=== PATIENT | female | born 1935 | race Caucasian/White ===

== ENCOUNTER → 2017-01-27 | Outpatient (CLI) | payer MEDICARE, BC ==
--- NOTE | 2017-01-29 08:48 | MM ---
Reason for exam: screening (asymptomatic). Last mammogram was performed 1 year and 1 month ago. History: Patient is postmenopausal. Family history of breast cancer in maternal aunt. Physical Findings: A clinical breast exam by your physician is recommended on an annual basis and results should be correlated with mammographic findings. MG 3D Screening Mammo W/Cad Bilateral CC and MLO view(s) were taken. Prior study comparison: December 25, 2015, bilateral MG 3d screening mammo w/cad. December 20, 2014, bilateral MG screening mammo w CAD. December 02, 2013, bilateral MG screening mammo w CAD. There are scattered fibroglandular densities. There is chronic nodularity in the left breast. Subareolar asymmetric density in the right breast is more defined from priors but partially disperses on tomosynthesis. The MLO view is unchanged. A precautionary 6 month follow up is recommended. ASSESSMENT: Probably benign, BI-RAD 3 RECOMMENDATION: Follow-up diagnostic mammogram of the right breast in 6 months.
== END | disposition home or self-care (01) ==
LOC: RADMAMWWP 12:36
PROVIDERS: ATTEND Internal Medicine
DX: Z12.31 Encounter for screening mammogram for malignant neoplasm of breast (principal)
CPT/HCPCS: 77063; G0202

== ENCOUNTER 2017-07-29 02:47 | Emergency (ER) | payer MEDICARE, BC ==
[2017-07-29 02:59] VITALS: RESP 16
--- NOTE | 2017-07-29 03:09 | ED ---
Fall HPI - General Chief Complaint: Fall Stated Complaint: fall Time Seen by Provider: 07/29/17 02:47 Source: patient, EMS, RN notes reviewed Mode of arrival: EMS - History of Present Illness Initial Comments: Is as a 82-year-old female who states she got up and tripped landing on the floor hitting the right side of her face. She denies any head neck or back pain any loss of function to her upper or lower extremities she denies any other injury. This pain to the right side of her face. She was brought in by EMS. MD Complaint: fall - Related Data Allergies Allergy/AdvReac Type Severity Reaction Status Date / Time acetaminophen [From Vicodin] Allergy Vomiting Verified 07/29/17 03:02 atorvastatin [From Lipitor] Allergy Rash/Hives Verified 07/29/17 03:02 codeine Allergy Vomiting Verified 07/29/17 03:02 hydralazine Allergy Rash/Hives Verified 07/29/17 03:02 hydrocodone [From Vicodin] Allergy Vomiting Verified 07/29/17 03:02 Penicillins Allergy Rash/Hives Verified 07/29/17 03:02 propoxyphene Allergy Confusion Verified 07/29/17 03:02 [From Darvocet-N] Sulfa (Sulfonamide Allergy Rash/Hives Verified 07/29/17 03:02 Antibiotics) banana AdvReac Vomiting Verified 07/29/17 03:02 Review of Systems ROS Statement: Those systems with pertinent positive or pertinent negative responses have been documented in the HPI. ROS Other: All systems not noted in ROS Statement are negative. Past Medical History Past Medical History: Hyperlipidemia, Hypertension, Thyroid Disorder History of Any Multi-Drug Resistant Organisms: None Reported Past Surgical History: Back Surgery, Cholecystectomy, Orthopedic Surgery, Tubal Ligation Smoking Status: Never smoker Past Alcohol Use History: None Reported Past Drug Use History: None Reported General Exam - General Exam Comments Initial Comments: Is a well-developed well-nourished awake alert oriented 3 female she has a [place] Coma Scale of 15 Limitations: no limitations General appearance: alert, in no apparent distress Head exam: Present: normocephalic, other (Patient does demonstrate ecchymosis over the right orbit especially inferior aspect a small superficial abrasion seen no suture repair indicated. No step-off or crepitation. She does complain some numbness to her right upper teeth) Eye exam: Present: other (Edema as stated above. To the right eye. Due to the pain the patient is not able to allow me to see extraocular movement at this time. There is evidence of a small laceration of the upper lid no active bleeding seen at this time.). Absent: normal appearance ENT exam: Present: normal oropharynx, mucous membranes moist, TM's normal bilaterally, other (No evidence of malocclusion) Neck exam: Present: normal inspection. Absent: tenderness, meningismus, lymphadenopathy Respiratory exam: Present: normal lung sounds bilaterally. Absent: respiratory distress, wheezes, rales, rhonchi, stridor Cardiovascular Exam: Present: regular rate, normal rhythm, normal heart sounds. Absent: systolic murmur, diastolic murmur, rubs, gallop, clicks GI/Abdominal exam: Present: soft, normal bowel sounds. Absent: distended, tenderness, guarding, rebound, rigid Extremities exam: Present: normal inspection, full ROM, normal capillary refill. Absent: tenderness, pedal edema, joint swelling, calf tenderness Back exam: Present: normal inspection Neurological exam: Present: alert, oriented X3, CN II-XII intact Psychiatric exam: Present: normal affect, normal mood Skin exam: Present: warm, dry, intact, normal color. Absent: rash Course Vital Signs 07/29/17 07/29/17 02:48 04:33 Temperature 97.0 F L 98.0 F Pulse Rate 70 73 Respiratory 16 16 Rate Blood Pressure 190/72 167/77 O2 Sat by Pulse 98 97 Oximetry - Reevaluation(s) Reevaluation #1: 07/29/17 03:08 Patient states her last tetanus shot was about 5 years ago. Reevaluation #2: 07/29/17 04:44 Examination the patient after return from CAT scan reveals that she still [place] Coma Scale of 15 awake alert oriented I was able to examine her eye she does demonstrate some conjunctival hematoma evidence for cataract the patient does not seem to be able to gaze medially with the right eye with limited movement. This does suggest entrapment. Reevaluation #3: 07/29/17 04:46 Patient was offered pain medication but did not want any of us far. Medical Decision Making - Medical Decision Making I did discuss the findings with the patient family members or present the family has just and requested transfer to [facility] in [place]. Discussed case with Dr. Khan who is agreed to set the patient in transfer ER to ER. Patient will go by ground EMS unit. - Radiology Data Radiology results: report reviewed (I did review the imaging and reports CT the brain and C-spine show no acute findings however facial bones CAT scan demonstrates displaced fracture involving the right orbital floor with extension into the right maxillary sinus hyperdensity circumferentially around the right globe suggesting hemorrhagic medicated recently globe also right inferior rectus muscle extends to the displaced fracture. Extensive hemorrhagic soft tissue around the right periorbitalSinus region), image reviewed Disposition Clinical Impression: Fall, Fracture of right orbital floor, Blunt trauma, right eye Disposition: OTHER INSTITUTION NOT DEFINED Condition: Stable Referrals: Daniel Sims MD [Primary Care Provider] - 1-2 days - Out of Hospital Transfer - Req. Specs Out of Hospital Transfer - Requested Specifics: Other Emergency Center
--- NOTE | 2017-07-29 04:03 | CT ---
EXAM: CT Head Without Intravenous Contrast CLINICAL HISTORY: Reason: Pain TECHNIQUE: Axial computed tomography images of the head/brain without intravenous contrast. CTDI is 57.4 mGy and DLP is 1116 mGy-cm. This CT exam was performed using one or more of the following dose reduction techniques: automated exposure control, adjustment of the mA and/or kV according to patient size, and/or use of iterative reconstruction technique. COMPARISON: No relevant prior studies available. FINDINGS: Brain: Unremarkable. No hemorrhage. No significant white matter disease. No edema. Ventricles: Unremarkable. No ventriculomegaly. Bones/joints: Unremarkable. No acute fracture. Soft tissues: There is hyperdensity and soft tissue swelling involving the right periorbital and maxillary soft tissues. Sinuses: Hyperdensity with opacification of the right maxillary sinus is noted with apparent orbital/maxillary wall injury. Mastoid air cells: Unremarkable as visualized. No mastoid effusion. Orbits: There is hyperdensity surrounding the right globe which extends to the post-septal fat and is noted adjacent to the optic nerve. IMPRESSION: No acute intracranial process identified. Fracture involving the superior orbit with hemorrhagic changes in the maxillary sinus. For full details please see the maxillofacial CT report performed the same day. EXAM: CT Cervical Spine Without Intravenous Contrast CLINICAL HISTORY: Reason: Pain TECHNIQUE: Axial computed tomography images of the cervical spine without intravenous contrast. CTDI is 28.60 mGy and DLP is 602.80 mGy-cm. This CT exam was performed using one or more of the following dose reduction techniques: automated exposure control, adjustment of the mA and/or kV according to patient size, and/or use of iterative reconstruction technique. Coronal and sagittal reformatted images were created and reviewed. COMPARISON: No relevant prior studies available. FINDINGS: Vertebrae: Multilevel disc spondylosis with narrowing and marginal hypertrophic osteophyte formation is seen from C3-4 through C5-6-7 levels. There is a 3 mm anterolisthesis involving C7 on T1. There is a 2 mm anterolisthesis of T1 on T2. No acute fracture. The facet joints are well aligned without significant displacement. Discs/spinal canal/neural foramina: See above. Soft tissues: Unremarkable. Lung apices: Unremarkable as visualized. IMPRESSION: Multilevel degenerative changes of cervical spine. There is 3 mm anterolisthesis of C7 on T1 and 2 mm anterolisthesis of T1 on T2. This is presumed related to degenerative changes. However, if the patient has cervical tenderness, MRI should be considered to evaluate for potential ligamentous injury.
--- NOTE | 2017-07-29 04:11 | CT ---
EXAM: CT Maxillofacial Without Intravenous Contrast CLINICAL HISTORY: Reason: Pain TECHNIQUE: Axial computed tomography images of the face without intravenous contrast. CTDI is 32.10 mGy and DLP is 519.40 mGy-cm. This CT exam was performed using one or more of the following dose reduction techniques: automated exposure control, adjustment of the mA and/or kV according to patient size, and/or use of iterative reconstruction technique. Coronal and sagittal reformatted images were created and reviewed. COMPARISON: No relevant prior studies available. FINDINGS: Bones/joints: There is a depressed fracture involving the floor of the orbit extending into the superior right maxillary sinus. The lateral aspect of the fracture fragment is displaced approximately 6 mm inferiorly. The inferior rectus muscle abuts the fracture without clear entrapment at this time. Soft tissues: There is hyperdense soft tissue swelling involving the right periorbital region and maxilla. Orbits: The right globe demonstrates exophthalmos and hyperdensity circumferentially extending posteriorly adjacent to the optic nerve. Post-septal fat stranding is noted. Minimal gas in the post-septal space is identified. Sinuses: Hemorrhagic effusion of the right maxillary sinus is noted. IMPRESSION: Displaced fracture involving the right orbital floor which extends into the right maxillary sinus. There is hyperdensity circumferentially around the right globe suggesting hemorrhagic traumatic injury to the globe. Please correlate with clinical exam. The right inferior rectus muscle extends to the displaced fracture biz is not appear to be entrapped at this time. Hemorrhagic effusion right maxillary sinus. Extensive hemorrhagic soft tissue traumatic injury right periorbital and maxillary region.
[2017-07-29] MEDS ORDERED: PIPERACILLIN-TAZOBACTAM 3.375 GM in DEXTROSE/WATER 1 50ML.BAG IVPB STA (04:28)
[2017-07-29] MEDS ORDERED: MORPHINE SULFATE 5 MG/ML SYRINGE IVP STA (05:19)
[2017-07-29] MEDS ORDERED: ONDANSETRON 4 MG/2 ML VIAL IVP STA (05:19)
[2017-07-29 05:52] VITALS: BP 155/68; PULSE 74; TEMP 97.9
== END 2017-07-29 05:55 | disposition other institution (70) ==
LOC: EC 02:47
DX: S02.31XA Fracture of orbital floor, right side, initial encounter for closed fracture (principal); Z88.0 Allergy status to penicillin; Z88.2 Allergy status to sulfonamides; Z88.5 Allergy status to narcotic agent; Z88.6 Allergy status to analgesic agent; Z88.8 Allergy status to other drugs, medicaments and biological substances; Z91.018 Allergy to other foods; W01.10XA Fall on same level from slipping, tripping and stumbling with subsequent striking against unspecified object, initial encounter; Y92.009 Unspecified place in unspecified non-institutional (private) residence as the place of occurrence of the external cause
CPT/HCPCS: 72125; 70486; 70450; 99284; 96365; 96375 ×2; J2405; J2543; J2274

== ENCOUNTER → 2017-09-21 | Outpatient (CLI) | payer MEDICARE, BC ==
--- NOTE | 2017-09-21 11:24 | MM ---
Reason for exam: follow-up at short interval from prior study. Last mammogram was performed 8 months ago. History: Patient is postmenopausal. Family history of breast cancer in maternal cousin and breast cancer in maternal aunt. Physical Findings: Nurse did not find any significant physical abnormalities on exam. MG 3D Diag Mammo W/Cad RT CC, MLO, and ML view(s) were taken of the right breast. Prior study comparison: January 27, 2017, bilateral MG 3d screening mammo w/cad. December 25, 2015, bilateral MG 3d screening mammo w/cad. There are scattered fibroglandular densities. Finding: There are few typically benign round calcifications in the right breast. Asymmetric breast tissue in the right breast, stable, subareolar. There is no discrete abnormality. These results were verbally communicated with the patient and result sheet given to the patient on 09/21/17. ASSESSMENT: Benign, BI-RAD 2 RECOMMENDATION: Return to routine screening mammogram schedule for both breasts. Back on schedule for January 2018.
== END | disposition home or self-care (01) ==
LOC: RADMAMWWP 10:32
PROVIDERS: ATTEND Internal Medicine
DX: R92.8 Other abnormal and inconclusive findings on diagnostic imaging of breast (principal)
CPT/HCPCS: 77065; G0279

== ENCOUNTER 2017-09-30 11:44 | Emergency (ER) | payer MEDICARE, BC ==
[2017-09-30 12:11] LABS: Appearance,Urine Clear (Clear); Bilirubin,Urine Negative (Negative); Blood,Urine Negative (Negative); Color,Urine Yellow; Glucose,Urine (UA) Negative (Negative); Ketones,Urine Negative (Negative); Leukocyte Esterase,Urine Negative (Negative); Nitrite,Urine Negative (Negative); Protein,Urine Negative (Negative); Specific Gravity,Urine 1.015 (1.001-1.035); Urobilinogen,Urine <2.0 mg/dL (<2.0)
[2017-09-30] MEDS ORDERED: SODIUM CHLORIDE 0.9% 500 ML IV STA (13:22)
--- NOTE | 2017-09-30 13:27 | ED ---
General Adult HPI - General Chief complaint: Recheck/Abnormal Lab/Rx Stated complaint: Right side pain Time Seen by Provider: 09/30/17 13:14 Source: patient, RN notes reviewed Mode of arrival: ambulatory Limitations: no limitations - History of Present Illness Initial comments: 82-year-old female presents emergency Department chief complaint right side pain. Patient states pain to the left last 2-3 days. Patient states that nothing really makes it feel better or worse. She did state that she checked her blood pressure yesterday and that was elevated though this was prior taking her blood pressure medication. She states she returned after she took it and the blood pressure is much better. She denies chest pain, shortness breath or any pleuritic chest pain. Patient states that seems to wrap around on the right side insidiously towards his superficial region. Patient denies any nausea vomiting diarrhea constipation no the usual. Denies any dysuria no hematuria. Patient states that she's a prior cholecystectomy. Patient states she does have probably kidney stone on the right she does see Dr. Velásquez hospital nurse liaison. Patient states she try to call her hospital nurse liaison and primary care physician who were not in office so she came the emergency department. - Related Data Home Medications Medication Instructions Recorded Confirmed Allopurinol [Zyloprim] 100 mg PO DAILY 09/30/17 09/30/17 Aspirin 81 mg PO DAILY 09/30/17 09/30/17 Atenolol/Chlorthalidone 0.5 tab PO HS 09/30/17 09/30/17 [Atenolol-Chlorthalidone 100-25] Atenolol/Chlorthalidone 1 tab PO DAILY 09/30/17 09/30/17 [Atenolol-Chlorthalidone 100-25] Enalapril [Vasotec] 20 mg PO BID 09/30/17 09/30/17 Ergocalciferol (Vitamin D2) 50,000 unit PO Q30D 09/30/17 09/30/17 [Vitamin D2] Furosemide [Lasix] 20 mg PO DAILY PRN 09/30/17 09/30/17 Hydrocortisone [Anusol-Hc] 1 applic RECTAL DAILY PRN 09/30/17 09/30/17 Levothyroxine Sodium [Synthroid] 137 mcg PO DAILY 09/30/17 09/30/17 Magnesium Oxide [Mag-Ox] 400 mg PO DAILY 09/30/17 09/30/17 Multivitamins, Thera [Multivitamin 1 tab PO DAILY 09/30/17 09/30/17 (formulary)] Nystatin 100,000 Unit/gm Powd 1 applic TOPICAL BID PRN 09/30/17 09/30/17 [Mycostatin Powder] Potassium Chloride [Klor-Con 10] 20 meq PO BID 09/30/17 09/30/17 Psyllium Husk 100% [Metamucil 1 packet PO HS 09/30/17 09/30/17 Packet] amLODIPine [Norvasc] 10 mg PO DAILY 09/30/17 09/30/17 Previous Rx's Medication Instructions Recorded valACYclovir HCL [Valtrex] 1,000 mg PO Q8HR #30 tab 09/30/17 Allergies Allergy/AdvReac Type Severity Reaction Status Date / Time atorvastatin [From Lipitor] Allergy Rash/Hives Verified 09/30/17 13:13 hydralazine Allergy Rash/Hives Verified 09/30/17 13:13 Penicillins Allergy Rash/Hives Verified 09/30/17 13:13 Sulfa (Sulfonamide Allergy Rash/Hives Verified 09/30/17 13:13 Antibiotics) banana AdvReac Vomiting Verified 09/30/17 13:13 codeine AdvReac Vomiting Verified 09/30/17 13:13 hydrocodone [From Vicodin] AdvReac Vomiting Verified 09/30/17 13:13 propoxyphene AdvReac Confusion Verified 09/30/17 13:13 [From Darvocet-N] Review of Systems ROS Statement: Those systems with pertinent positive or pertinent negative responses have been documented in the HPI. ROS Other: All systems not noted in ROS Statement are negative. Past Medical History Past Medical History: Hyperlipidemia, Hypertension, Thyroid Disorder History of Any Multi-Drug Resistant Organisms: None Reported Past Surgical History: Back Surgery, Cholecystectomy, Orthopedic Surgery, Tubal Ligation Past Psychological History: No Psychological Hx Reported Smoking Status: Never smoker Past Alcohol Use History: None Reported Past Drug Use History: None Reported General Exam Limitations: no limitations General appearance: alert, in no apparent distress Neck exam: Present: normal inspection. Absent: tenderness, meningismus, lymphadenopathy Respiratory exam: Present: normal lung sounds bilaterally. Absent: respiratory distress, wheezes, rales, rhonchi, stridor Cardiovascular Exam: Present: regular rate, normal rhythm, normal heart sounds. Absent: systolic murmur, diastolic murmur, rubs, gallop, clicks GI/Abdominal exam: Present: soft, normal bowel sounds, other (Slight rash to the right flank region). Absent: distended, tenderness, guarding, rebound, rigid Back exam: Absent: CVA tenderness (R), CVA tenderness (L) Skin exam: Present: warm, dry, intact, normal color. Absent: rash Course Vital Signs 09/30/17 09/30/17 11:48 15:12 Temperature 98.6 F 97.6 F Pulse Rate 68 75 Respiratory 18 14 Rate Blood Pressure 194/79 169/70 O2 Sat by Pulse 97 97 Oximetry Medical Decision Making - Medical Decision Making 82-year-old female presented for right-sided vague abdominal discomfort. Has been present for last few days. She does have slight rash to her right flank region concerns for early shingles. Patient's x-ray shows ileus patient's abdominal exam is essentially benign with palpation. Patient lab work reviewed no major abnormality's. Patient be discharged at this time return parameters were discussed. - Lab Data Result diagrams: 09/30/17 13:36 09/30/17 13:36 Lab Results 09/30/17 09/30/17 09/30/17 Range/Units 11:54 13:36 13:36 WBC 9.7 (3.8-10.6) k/uL RBC 4.90 (3.80-5.40) m/uL Hgb 15.0 (11.4-16.0) gm/dL Hct 43.2 (34.0-46.0) % MCV 88.2 (80.0-100.0) fL MCH 30.6 (25.0-35.0) pg MCHC 34.7 (31.0-37.0) g/dL RDW 13.1 (11.5-15.5) % Plt Count 89 L (150-450) k/uL Neutrophils % 72 % Lymphocytes % 19 % Monocytes % 5 % Eosinophils % 1 % Basophils % 0 % Neutrophils # 7.0 (1.3-7.7) k/uL Lymphocytes # 1.9 (1.0-4.8) k/uL Monocytes # 0.5 (0-1.0) k/uL Eosinophils # 0.1 (0-0.7) k/uL Basophils # 0.0 (0-0.2) k/uL Manual Slide Review Performed RBC Morphology Normal PT (9.0-12.0) sec INR (<1.2) APTT (22.0-30.0) sec Sodium 137 (137-145) mmol/L Potassium 4.9 (3.5-5.1) mmol/L Chloride 101 (98-107) mmol/L Carbon Dioxide 25 (22-30) mmol/L Anion Gap 11 mmol/L BUN 17 (7-17) mg/dL Creatinine 0.76 (0.52-1.04) mg/dL Est GFR (CKD-EPI)AfAm 86 (>60 ml/min/1.73 sqM) Est GFR (CKD-EPI)NonAf 74 (>60 ml/min/1.73 sqM) Glucose 104 H (74-99) mg/dL Calcium 10.3 H (8.4-10.2) mg/dL Total Bilirubin 1.9 H (0.2-1.3) mg/dL AST 42 H (14-36) U/L ALT 20 (9-52) U/L Alkaline Phosphatase 72 (38-126) U/L Total Protein 8.0 (6.3-8.2) g/dL Albumin 4.5 (3.5-5.0) g/dL Amylase 74 (30-110) U/L Lipase 128 (23-300) U/L Urine Color Yellow Urine Appearance Clear (Clear) Urine pH 8.0 (5.0-8.0) Ur Specific [place] 1.015 (1.001-1.035) Urine Protein Negative (Negative) Urine Glucose (UA) Negative (Negative) Urine Ketones Negative (Negative) Urine Blood Negative (Negative) Urine Nitrite Negative (Negative) Urine Bilirubin Negative (Negative) Urine Urobilinogen <2.0 (<2.0) mg/dL Ur Leukocyte Esterase Negative (Negative) 09/30/17 Range/Units 13:36 WBC (3.8-10.6) k/uL RBC (3.80-5.40) m/uL Hgb (11.4-16.0) gm/dL Hct (34.0-46.0) % MCV (80.0-100.0) fL MCH (25.0-35.0) pg MCHC (31.0-37.0) g/dL RDW (11.5-15.5) % Plt Count (150-450) k/uL Neutrophils % % Lymphocytes % % Monocytes % % Eosinophils % % Basophils % % Neutrophils # (1.3-7.7) k/uL Lymphocytes # (1.0-4.8) k/uL Monocytes # (0-1.0) k/uL Eosinophils # (0-0.7) k/uL Basophils # (0-0.2) k/uL Manual Slide Review RBC Morphology PT 9.8 (9.0-12.0) sec INR 1.0 (<1.2) APTT 24.4 (22.0-30.0) sec Sodium (137-145) mmol/L Potassium (3.5-5.1) mmol/L Chloride (98-107) mmol/L Carbon Dioxide (22-30) mmol/L Anion Gap mmol/L BUN (7-17) mg/dL Creatinine (0.52-1.04) mg/dL Est GFR (CKD-EPI)AfAm (>60 ml/min/1.73 sqM) Est GFR (CKD-EPI)NonAf (>60 ml/min/1.73 sqM) Glucose (74-99) mg/dL Calcium (8.4-10.2) mg/dL Total Bilirubin (0.2-1.3) mg/dL AST (14-36) U/L ALT (9-52) U/L Alkaline Phosphatase (38-126) U/L Total Protein (6.3-8.2) g/dL Albumin (3.5-5.0) g/dL Amylase (30-110) U/L Lipase (23-300) U/L Urine Color Urine Appearance (Clear) Urine pH (5.0-8.0) Ur Specific [place] (1.001-1.035) Urine Protein (Negative) Urine Glucose (UA) (Negative) Urine Ketones (Negative) Urine Blood (Negative) Urine Nitrite (Negative) Urine Bilirubin (Negative) Urine Urobilinogen (<2.0) mg/dL Ur Leukocyte Esterase (Negative) Disposition Clinical Impression: Ileus, Herpes zoster Disposition: HOME SELF-CARE Condition: Stable Instructions: Ileus (ED), Shingles (ED) Additional Instructions: Please return to the Emergency Department if symptoms worsen or any other concerns. Prescriptions: valACYclovir HCL [Valtrex] 1,000 mg PO Q8HR #30 tab Referrals: Daniel Sims MD [Primary Care Provider] - 1-2 days Time of Disposition: 15:19
[2017-09-30 13:51] LABS: Basophils % (A) 0 %; Eosinophils # (A) 0.1 k/uL (0-0.7); Eosinophils % (A) 1 %; HCT 43.2 % (34.0-46.0); Lymphocytes # (A) 1.9 k/uL (1.0-4.8); Lymphocytes % (A) 19 %; MCH 30.6 pg (25.0-35.0); MCHC 34.7 g/dL (31.0-37.0); MCV 88.2 fL (80.0-100.0); Mean Platelet Volume 7.8; Monocytes # (A) 0.5 k/uL (0-1.0); Monocytes % (A) 5 %; Neutrophils % (A) 72 %; RDW 13.1 % (11.5-15.5); WBC 9.7 k/uL (3.8-10.6)
[2017-09-30 14:03] LABS: Albumin 4.5 g/dL (3.5-5.0); Calcium 10.3 mg/dL (8.4-10.2); Total Bilirubin 1.9 mg/dL (0.2-1.3)
[2017-09-30 14:08] LABS: Potassium 4.9 mmol/L (3.5-5.1)
[2017-09-30 14:09] LABS: Partial Thromboplastin Time 24.4 sec (22.0-30.0); Prothrombin Time 9.8 sec (9.0-12.0)
--- NOTE | 2017-09-30 14:27 | XR ---
EXAMINATION TYPE: XR KUB DATE OF EXAM: 09/30/2017 CLINICAL DATA: 82-year-old female with abdominal pain, [facility] COMPARISON: 11/03/2009 FINDINGS: No evidence for free intraperitoneal air. Cholecystectomy clips. Scattered air-fluid levels especially in the right hemicolon. No dilated small bowel loops. No signif icant stool burden. No suspicious calcifications seen. IMPRESSION: Small air-fluid levels in the right hemicolon suggesting liquid stool related to enteritis or a regio nal ileus. No evidence for bowel obstruction or free air.
[2017-09-30 14:33] LABS: Platelet Count 89 k/uL (150-450)
--- NOTE | 2017-09-30 14:57 | US ---
EXAMINATION TYPE: US abdomen limited DATE OF EXAM: 09/30/2017 COMPARISON: US 03/29/2014 CLINICAL HISTORY: 82-year-old female right flank pain. Technique: Multiple sonographic images of the right upper quadrant are obtained. FINDINGS: Liver Length: 12.8 cm Gallbladder: Surgically absent CBD: 0.5 cm Right Kidney: 9.6 x 5.2 x 4.6 cm Pancreas: Tail and head obscured by overlying bowel gas Liver: Limited exam due to overlying bowel gas, visualized portions appear somewhat echogenic. Gallbladder: Surgically absent Evidence for sonographic Madsen's sign: No CBD: wnl Right Kidney: No hydronephrosis. 5 mm echogenic focus in the upper pole. IMPRESSION: 1. Technical limitations due to bowel gas. Slight increased echogenicity of the liver could represent mild fatty infiltration. 2. Status post cholecystectomy. No biliary ductal dilatation. 3. Possible 5 mm nonobstructive right renal calculus.
[2017-09-30 15:43] VITALS: TEMP 97.1
[2017-09-30 15:45] VITALS: BP 168/66; PULSE 69; RESP 18
== END 2017-09-30 15:43 | disposition home or self-care (01) ==
LOC: EC 11:44
DX: B02.9 Zoster without complications (principal); K56.7 Ileus, unspecified; I10 Essential (primary) hypertension; E07.9 Disorder of thyroid, unspecified; Z79.82 Long term (current) use of aspirin; Z79.899 Other long term (current) drug therapy; Z88.0 Allergy status to penicillin; Z88.2 Allergy status to sulfonamides; Z88.5 Allergy status to narcotic agent; Z88.8 Allergy status to other drugs, medicaments and biological substances; Z91.018 Allergy to other foods; Z90.49 Acquired absence of other specified parts of digestive tract
CPT/HCPCS: 36415; 74018; 76705; 80053; 81003; 82150; 83690; 85025; 85610; 85730; 96360; 96361; 99284

== ENCOUNTER → 2018-01-11 | Outpatient (CLI) | payer MEDICARE, BC ==
[2018-01-11 15:16] LABS: Basophils % (A) 0 %; Eosinophils # (A) 0.1 k/uL (0-0.7); Eosinophils % (A) 1 %; HCT 43.2 % (34.0-46.0); HGB 14.9 gm/dL (11.4-16.0); Lymphocytes # (A) 2.3 k/uL (1.0-4.8); Lymphocytes % (A) 22 %; MCH 31.3 pg (25.0-35.0); MCHC 34.5 g/dL (31.0-37.0); MCV 90.9 fL (80.0-100.0); Mean Platelet Volume 7.4; Monocytes # (A) 0.6 k/uL (0-1.0); Monocytes % (A) 6 %; Neutrophils # (A) 7.1 k/uL (1.3-7.7); Neutrophils % (A) 69 %; Platelet Count 111 k/uL (150-450); RBC 4.75 m/uL (3.80-5.40); RDW 14.6 % (11.5-15.5); WBC 10.3 k/uL (3.8-10.6)
[2018-01-11 15:47] LABS: Albumin 4.4 g/dL (3.5-5.0); Bilirubin, Delta 0.2 mg/dL (0.0-0.2); Bilirubin,Unconjugated 1.3 mg/dL (0.0-1.1); Total Bilirubin 1.5 mg/dL (0.2-1.3); Total Protein 7.3 g/dL (6.3-8.2)
[2018-01-11 15:48] LABS: Appearance,Urine Clear (Clear); Bilirubin,Urine Negative (Negative); Blood,Urine Negative (Negative); Color,Urine Light Yellow; Glucose,Urine (UA) Negative (Negative); Ketones,Urine Negative (Negative); Leukocyte Esterase,Urine Negative (Negative); Nitrite,Urine Negative (Negative); PH, Urine 6.5 (5.0-8.0); Protein,Urine Negative (Negative); Specific Gravity,Urine 1.008 (1.001-1.035); Urobilinogen,Urine <2.0 mg/dL (<2.0)
[2018-01-11 19:37] LABS: Hepatitis A Antibody IgM Non-Reactive (Non-Reactive); Hepatitis B Core IgM Non-Reactive (Non-Reactive)
--- NOTE | 2018-01-12 07:36 | XR ---
EXAMINATION TYPE: XR thoracic spine complete DATE OF EXAM: 01/11/2018 CLINICAL HISTORY: pain TECHNIQUE: Frontal, lateral, and swimmer's view of thoracic spine are obtained. COMPARISON: None. FINDINGS: Thoracic spine show satisfactory alignment without evidence of acute fracture or dislocatio n. Vertebral body heights are preserved. Moderate degenerative disc space narrowing and spondylosis. Visualized ribs are unremarkable. IMPRESSION: No acute fracture or dislocation is seen in the thoracic spine. ICD 10 NO FRACTURE, INIT IAL EVALUATION
== END | disposition home or self-care (01) ==
LOC: LABWHC1 14:33
PROVIDERS: ATTEND Internal Medicine
DX: R10.11 Right upper quadrant pain (principal)
CPT/HCPCS: 36415; 72072; 80074; 80076; 81003; 85025; 87086

== ENCOUNTER → 2018-01-11 | Outpatient (CLI) | payer MEDICARE, BC ==
--- NOTE | 2018-01-12 07:05 | US ---
EXAMINATION TYPE: US kidneys/renal and bladder DATE OF EXAM: 01/11/2018 COMPARISON: NONE CLINICAL HISTORY: N18.3 Chronic Kidney disease stage 3. Rt flank pain EXAM MEASUREMENTS: Right Kidney: 9.0 x 4.3 x 5.2 cm Left Kidney: 10.1 x 3.8 x 4.9 cm Right Kidney: possible 0.6cm superior pole stone seen Left Kidney: No hydronephrosis or masses seen Bladder: wnl Bilateral Jets seen: yes There is no evidence for hydronephrosis at this point in time. No masses are identified. The urinar y bladder is anechoic. Bilateral ureteral jets are seen. IMPRESSION: 1. Nonobstructing right-sided nephrolithiasis.
== END | disposition home or self-care (01) ==
LOC: RADUSWWP 14:47
PROVIDERS: ATTEND Internal Medicine Nephrology
DX: N20.0 Calculus of kidney (principal); N18.3 Chronic kidney disease, stage 3 (moderate)
CPT/HCPCS: 76770

== ENCOUNTER → 2018-02-23 | Outpatient (CLI) | payer MEDICARE, BC ==
[2018-02-23 12:18] LABS: T4, Free (Free Thyroxine) 1.94 ng/dL (0.78-2.19)
--- NOTE | 2018-02-25 08:36 | MM ---
Reason for exam: screening (asymptomatic). Last mammogram was performed 5 months ago. History: Patient is postmenopausal. Family history of breast cancer in maternal cousin and breast cancer in maternal aunt. Physical Findings: A clinical breast exam by your physician is recommended on an annual basis and results should be correlated with mammographic findings. MG 3D Screening Mammo W/Cad Bilateral CC and MLO view(s) were taken. Prior study comparison: September 21, 2017, right breast MG 3d diag mammo w/cad RT. January 27, 2017, bilateral MG 3d screening mammo w/cad. There are scattered fibroglandular densities. No significant changes when compared with prior studies. ASSESSMENT: Negative, BI-RAD 1 RECOMMENDATION: Routine screening mammogram of both breasts in 1 year.
== END | disposition home or self-care (01) ==
LOC: RADMAMWWP 10:11
PROVIDERS: ATTEND Internal Medicine
DX: Z12.31 Encounter for screening mammogram for malignant neoplasm of breast (principal); E03.9 Hypothyroidism, unspecified
CPT/HCPCS: 36415; 77063; 77067; 84439; 84443

== ENCOUNTER → 2019-03-14 | Outpatient (CLI) | payer MEDICARE, BC ==
--- NOTE | 2019-03-15 15:18 | MM ---
Reason for exam: screening (asymptomatic). Last mammogram was performed 1 year and 1 month ago. History: Patient is postmenopausal. Family history of breast cancer in maternal cousin and breast cancer in maternal aunt. Took hormonal contraceptives for 6 months. Physical Findings: A clinical breast exam by your physician is recommended on an annual basis and results should be correlated with mammographic findings. MG 3D Screening Mammo W/Cad Bilateral CC and MLO view(s) were taken. Prior study comparison: February 23, 2018, bilateral MG 3d screening mammo w/cad. September 21, 2017, right breast MG 3d diag mammo w/cad RT. There are scattered fibroglandular densities. There are benign-appearing bilateral breast calcifications. No suspicious abnormality. No significant new finding when compared with prior studies. ASSESSMENT: Benign, BI-RAD 2 RECOMMENDATION: Routine screening mammogram of both breasts in 1 year.
== END | disposition home or self-care (01) ==
LOC: RADMAMWWP 11:01
PROVIDERS: ATTEND Internal Medicine
DX: Z12.31 Encounter for screening mammogram for malignant neoplasm of breast (principal)
CPT/HCPCS: 77063; 77067

== ENCOUNTER 2020-08-19 16:10 | Inpatient (IN) | payer MEDICARE, BC ==
--- NOTE | 2020-08-19 16:57 | ED ---
General Adult HPI - General Chief complaint: Abdominal Pain Stated complaint: Poss Bladder Infection Time Seen by Provider: 08/19/20 16:19 Source: patient Mode of arrival: ambulatory Limitations: no limitations - History of Present Illness Initial comments: Patient is a 85-year-old female presenting to emergency Department with complaints of a possible UTI. Patient states yesterday she thought she might be a little dehydrated so was drinking a lot of water, then she had increasing urinary frequency and some mild dysuria. Patient states today she has not been able to use the restroom more than twice. She denies any abdominal pain, she does have some very mild intermittent cramping over her suprapubic area. No nausea or vomiting, no fever or chills, no diarrhea. She states otherwise she feels her normal self. She has no further complaints at this time. Upon arrival to the ER, her vital signs are stable. - Related Data Home Medications Medication Instructions Recorded Confirmed Aspirin 81 mg PO DAILY 09/30/17 09/30/17 Atenolol/Chlorthalidone 0.5 tab PO HS 09/30/17 09/30/17 [Atenolol-Chlorthalidone 100-25] Atenolol/Chlorthalidone 1 tab PO DAILY 09/30/17 09/30/17 [Atenolol-Chlorthalidone 100-25] Enalapril [Vasotec] 20 mg PO BID 09/30/17 09/30/17 Ergocalciferol (Vitamin D2) 50,000 unit PO Q30D 09/30/17 09/30/17 [Vitamin D2] Furosemide [Lasix] 20 mg PO DAILY PRN 09/30/17 09/30/17 Hydrocortisone [Anusol-Hc] 1 applic RECTAL DAILY PRN 09/30/17 09/30/17 Levothyroxine Sodium [Synthroid] 137 mcg PO DAILY 09/30/17 09/30/17 Magnesium Oxide [Mag-Ox] 400 mg PO DAILY 09/30/17 09/30/17 Multivitamins, Thera [Multivitamin 1 tab PO DAILY 09/30/17 09/30/17 (formulary)] Nystatin 100,000 Unit/gm Powd 1 applic TOPICAL BID PRN 09/30/17 09/30/17 [Mycostatin Powder] Potassium Chloride [Klor-Con 10] 20 meq PO BID 09/30/17 09/30/17 Psyllium Husk 100% [Metamucil 1 packet PO HS 09/30/17 09/30/17 Packet] allopurinoL [Zyloprim] 100 mg PO DAILY 09/30/17 09/30/17 amLODIPine [Norvasc] 10 mg PO DAILY 09/30/17 09/30/17 Previous Rx's Medication Instructions Recorded valACYclovir HCL [Valtrex] 1,000 mg PO Q8HR #30 tab 09/30/17 Allergies Allergy/AdvReac Type Severity Reaction Status Date / Time atorvastatin [From Lipitor] Allergy Rash/Hives Verified 08/19/20 16:14 hydralazine Allergy Rash/Hives Verified 08/19/20 16:14 Penicillins Allergy Rash/Hives Verified 08/19/20 16:14 Sulfa (Sulfonamide Allergy Rash/Hives Verified 08/19/20 16:14 Antibiotics) banana AdvReac Vomiting Verified 08/19/20 16:14 codeine AdvReac Vomiting Verified 08/19/20 16:14 hydrocodone [From Vicodin] AdvReac Vomiting Verified 08/19/20 16:14 propoxyphene AdvReac Confusion Verified 08/19/20 16:14 [From Darvocet-N] Review of Systems ROS Statement: Those systems with pertinent positive or pertinent negative responses have been documented in the HPI. ROS Other: All systems not noted in ROS Statement are negative. Past Medical History Past Medical History: Hyperlipidemia, Hypertension, Thyroid Disorder History of Any Multi-Drug Resistant Organisms: None Reported Past Surgical History: Back Surgery, Cholecystectomy, Orthopedic Surgery, Tubal Ligation Past Psychological History: No Psychological Hx Reported Smoking Status: Never smoker Past Alcohol Use History: Rare Past Drug Use History: None Reported General Exam - General Exam Comments Initial Comments: GENERAL: Patient is well-developed and well-nourished. Patient is nontoxic and in no acute distress. HEAD: Atraumatic, normocephalic. EYES: Pupils equal round and reactive to light, extraocular movements intact, sclera anicteric, conjunctiva are normal. Eyelids were unremarkable. ENT: TMs normal, nares patent, oropharynx clear without exudates. Moist mucous membranes. NECK: Normal range of motion, supple without lymphadenopathy or JVD. LUNGS: Unlabored respirations. Breath sounds clear to auscultation bilaterally and equ al. No wheezes rales or rhonchi. HEART: Regular rate and rhythm without murmurs, rubs or gallops. ABDOMEN: Soft, nontender, normoactive bowel sounds. No guarding, no rebound. No masses appreciated. : Deferred MUSCULOSKELETAL: Normal extremities with adequate strength and normal range of motion, no pitting or edema. No clubbing or cyanosis. NEUROLOGICAL: Patient is alert and oriented x 3. Motor and sensory are also intact. Cranial nerves II through XII grossly intact. Symmetrical smile. Normal speech, normal gait. PSYCH: Normal mood, normal affect. SKIN: Warm, Dry, normal turgor, no rashes or lesions noted. Limitations: no limitations Course Vital Signs 08/19/20 08/19/20 16:10 17:54 Temperature 98.8 F Pulse Rate 68 67 Respiratory 20 18 Rate Blood Pressure 182/92 156/74 O2 Sat by Pulse 97 96 Oximetry Medical Decision Making - Medical Decision Making Patient is a 85-year-old female here with possible UTI for the past 2 days. Vital signs are stable, exam is unremarkable. Patient's urine shows no evidence of infection, she does have 1+ ketones. Patient's sodium level is 124, no other significant abnormalities on lab work. Patient states she does take Lasix occasionally, no vomiting recently. Patient was given 1 L fluids in the ER, she will be admitted for hyponatremia and continued on fluids. She is in agreement with this plan of care. Patient accepted by Dr. Davies. Case discussed with Dr. Tejeda. - Lab Data Result diagrams: 08/19/20 17:06 08/19/20 17:06 Lab Results 08/19/20 08/19/20 08/19/20 Range/Units 17:06 17:06 17:06 WBC 8.3 (3.8-10.6) k/uL RBC 4.88 (3.80-5.40) m/uL Hgb 15.2 (11.4-16.0) gm/dL Hct 43.3 (34.0-46.0) % MCV 88.7 (80.0-100.0) fL MCH 31.2 (25.0-35.0) pg MCHC 35.1 (31.0-37.0) g/dL RDW 12.9 (11.5-15.5) % MPV 7.7 Sodium 124 L (137-145) mmol/L Potassium 3.7 (3.5-5.1) mmol/L Chloride 88 L (98-107) mmol/L Carbon Dioxide 26 (22-30) mmol/L Anion Gap 10 mmol/L BUN 12 (7-17) mg/dL Creatinine 0.71 (0.52-1.04) mg/dL Est GFR (CKD-EPI)AfAm >90 (>60 ml/min/1.73 sqM) Est GFR (CKD-EPI)NonAf 79 (>60 ml/min/1.73 sqM) Glucose 108 H (74-99) mg/dL Calcium 10.2 (8.4-10.2) mg/dL Total Bilirubin 1.8 H (0.2-1.3) mg/dL AST 29 (14-36) U/L ALT 14 (4-34) U/L Alkaline Phosphatase 63 (38-126) U/L Total Protein 7.8 (6.3-8.2) g/dL Albumin 4.5 (3.5-5.0) g/dL Urine Color Yellow Urine Appearance Clear (Clear) Urine pH 7.0 (5.0-8.0) Ur Specific Gage 1.009 (1.001-1.035) Urine Protein Negative (Negative) Urine Glucose (UA) Negative (Negative) Urine Ketones 1+ H (Negative) Urine Blood Negative (Negative) Urine Nitrite Negative (Negative) Urine Bilirubin Negative (Negative) Urine Urobilinogen <2.0 (<2.0) mg/dL Ur Leukocyte Esterase Negative (Negative) Disposition Clinical Impression: Hyponatremia, Dehydration Disposition: ADMITTED IP TO THIS HOSP Condition: Stable Referrals: Ayala Carey NPC [Primary Care Provider] - 1-2 days Decision Date: 08/19/20 Decision Time: 18:01
[2020-08-19 17:31] LABS: ALT 14 U/L (4-34); AST 29 U/L (14-36); African American GFR (CKD) >90 (>60 ml/min/1.73 sqM); Albumin 4.5 g/dL (3.5-5.0); Alkaline Phosphatase 63 U/L (38-126); Anion Gap 10 mmol/L; Appearance,Urine Clear (Clear); Bilirubin,Urine Negative (Negative); Blood Urea Nitrogen 12 mg/dL (7-17); Blood,Urine Negative (Negative); Calcium 10.2 mg/dL (8.4-10.2); Carbon Dioxide 26 mmol/L (22-30); Chloride 88 mmol/L (98-107); Color,Urine Yellow; Glucose 108 mg/dL (74-99); Glucose,Urine (UA) Negative (Negative); Ketones,Urine 1+ (Negative); Leukocyte Esterase,Urine Negative (Negative); Nitrite,Urine Negative (Negative); Non-African American GFR(CKD) 79 (>60 ml/min/1.73 sqM); Potassium 3.7 mmol/L (3.5-5.1); Protein,Urine Negative (Negative); Sodium 124 mmol/L (137-145); Specific Gravity,Urine 1.009 (1.001-1.035); Total Bilirubin 1.8 mg/dL (0.2-1.3); Total Protein 7.8 g/dL (6.3-8.2); Urobilinogen,Urine <2.0 mg/dL (<2.0)
[2020-08-19 17:34] LABS: Basophils % (A) 0 %; Eosinophils % (A) 1 %; HCT 43.3 % (34.0-46.0); HGB 15.2 gm/dL (11.4-16.0); Lymphocytes # (A) 1.3 k/uL (1.0-4.8); Lymphocytes % (A) 16 %; MCH 31.2 pg (25.0-35.0); MCHC 35.1 g/dL (31.0-37.0); MCV 88.7 fL (80.0-100.0); Mean Platelet Volume 7.7; Monocytes # (A) 0.5 k/uL (0-1.0); Monocytes % (A) 6 %; Neutrophils # (A) 6.3 k/uL (1.3-7.7); Neutrophils % (A) 75 %; RBC 4.88 m/uL (3.80-5.40); RDW 12.9 % (11.5-15.5); WBC 8.3 k/uL (3.8-10.6)
[2020-08-19] MEDS ORDERED: SODIUM CHLORIDE 0.9% 1,000 ML IV STA (17:34)
[2020-08-19] MEDS ORDERED: ONDANSETRON 4 MG/2 ML VIAL IVP PRN (18:13)
[2020-08-19] MEDS ORDERED: ACETAMINOPHEN TAB 325 MG TAB PO PRN (18:13)
[2020-08-19] MEDS ORDERED: NALOXONE 0.4 MG/ML 1 ML VIAL IV PRN (18:13)
[2020-08-19] MEDS ORDERED: SODIUM CHLORIDE 0.9% 1,000 ML IV SCH (18:15)
[2020-08-19 18:26] LABS: Platelet Count 97 k/uL (150-450)
[2020-08-19 20:42] LABS: Creatinine,Urine Random 56.3 mg/dL
--- NOTE | 2020-08-19 22:23 | P.HPIM ---
History of Present Illness H&P Date: 08/19/20 Patient is an 85-year-old female with a PMH of hypo-thyroidism, hypertension, and hyperlipidemia who presented to the emergency room with complaints of difficulty urinating. Patient notes that she was in her usual state of health until about a week ago when she felt that she may be dehydrated gradually increase her water intake. She noted that over the past few days, she drank increasing amounts of water, as much as over a gallon each day. She became concerned however wench her urinary output decreased yesterday, and has since only urinated twice throughout the day today. The patient was concerned since she was consuming increasing amounts of water and was not urinating as expected. She thereby came to the hospital. She reported feeling some suprapubic fullness but denied additional complaints. She denied dysuria, hematuria, nausea, vomiting, diarrhea. She also denied chest discomfort, fever, chills, cough, or shortness of breath. Denied weakness, numbness, tingling, or seizure-like activity. She reported last using her Lasix prn 2 weeks ago for some LE edema. The patient underwent an extensive evaluation in the emergency room with laboratory evaluation showing unremarkable UA, Na 124, K 3.7, Cl 88, serum osmolality 258, urine osmolality 345, urine creatinine random 56.3, and serum creatinine 0.71, and platelets 97. Review of Systems Pertinent positives and negatives as discussed in HPI, a complete review of systems was performed and all other systems are negative. Past Medical History Past Medical History: Hyperlipidemia, Hypertension, Thyroid Disorder History of Any Multi-Drug Resistant Organisms: None Reported Past Surgical History: Back Surgery, Cholecystectomy, Orthopedic Surgery, Tubal Ligation Past Psychological History: No Psychological Hx Reported Smoking Status: Never smoker Past Alcohol Use History: Rare Past Drug Use History: None Reported Medications and Allergies Home Medications Medication Instructions Recorded Confirmed Type Aspirin 81 mg PO DAILY 09/30/17 08/19/20 History Atenolol/Chlorthalidone 0.5 tab PO HS 09/30/17 08/19/20 History [Atenolol-Chlorthalidone 100-25] Atenolol/Chlorthalidone 1 tab PO DAILY 09/30/17 08/19/20 History [Atenolol-Chlorthalidone 100-25] Enalapril [Vasotec] 20 mg PO BID 09/30/17 08/19/20 History Ergocalciferol (Vitamin D2) 50,000 unit PO Q30D 09/30/17 08/19/20 History [Vitamin D2] Furosemide [Lasix] 20 mg PO DAILY PRN 09/30/17 08/19/20 History Magnesium Oxide [Mag-Ox] 400 mg PO BID 09/30/17 08/19/20 History Multivitamins, Thera [Multivitamin 1 tab PO DAILY 09/30/17 08/19/20 History (formulary)] Potassium Chloride [Klor-Con 10] 20 meq PO BID 09/30/17 08/19/20 History Psyllium Husk 100% [Metamucil 1 packet PO HS 09/30/17 08/19/20 History Packet] allopurinoL [Zyloprim] 100 mg PO DAILY 09/30/17 08/19/20 History Calcium Carb/Magnesium Hydrox 1 tab PO Q4H PRN 08/19/20 08/19/20 History [Rolaids Chewable Tablet] Famotidine [Pepcid] 20 mg PO DAILY PRN 08/19/20 08/19/20 History Levothyroxine Sodium [Synthroid] 112 mcg PO DAILY 08/19/20 08/19/20 History amLODIPine [Norvasc] 5 mg PO DAILY 08/19/20 08/19/20 History Allergies Allergy/AdvReac Type Severity Reaction Status Date / Time atorvastatin [From Lipitor] Allergy Rash/Hives Verified 08/19/20 18:51 hydralazine Allergy Rash/Hives Verified 08/19/20 18:51 Penicillins Allergy Rash/Hives Verified 08/19/20 18:51 Sulfa (Sulfonamide Allergy Rash/Hives Verified 08/19/20 18:51 Antibiotics) banana AdvReac Vomiting Verified 08/19/20 18:51 codeine AdvReac Vomiting Verified 08/19/20 18:51 hydrocodone [From Vicodin] AdvReac Vomiting Verified 08/19/20 18:51 propoxyphene AdvReac Confusion Verified 08/19/20 18:51 [From Darvocet-N] Physical Exam Vitals: Vital Signs Temp Pulse Resp BP Pulse Ox 08/19/20 19:46 98.8 F 67 18 155/71 96 08/19/20 18:31 67 18 155/71 96 08/19/20 17:54 67 18 156/74 96 08/19/20 16:10 98.8 F 68 20 182/92 97 Intake and Output 08/19/20 08/19/20 08/19/20 06:59 14:59 22:59 Other: Weight 86.183 kg General: non toxic, no distress, appears at stated age, obese Derm: no unusual rashes/lesions no unusual ecchymoses, warm, dry Head: atraumatic, normocephalic, symmetric Eyes: EOMI, no lid lag, anicteric sclera, pupils equal round reactive to light ENT: Nose and ears atraumatic, no thrush, no pharyngeal erythema Neck: No thyromegaly, no cervical lymphadenopathy, trachea midline, supple Mouth: no lip lesion, mucus membranes moist Cardiovascular: S1S2 reg, no murmur, positive posterior tibial pulse bilateral, no edema, capillary refill less than 2 seconds Lungs: CTA bilateral, no rhonchi, no rales , no accessory muscle use Abdominal: soft, nontender to palpation, no guarding, no appreciable organomegaly, normal bowel sounds Ext: no gross muscle atrophy, muscle strength 5 out of 5 in all 4 extremities grossly, no contractures, Neuro: CN II-XI grossly intact, light touch intact all 4 extremities, finger to nose within normal limits, Psych: Alert, oriented, appropriate affect Results CBC & Chem 7: 08/19/20 17:06 08/19/20 22:24 Labs: Abnormal Lab Results - Last 24 Hours (Table) 08/19/20 08/19/20 08/19/20 Range/Units 17:06 17:06 17:06 Plt Count 97 L (150-450) k/uL Sodium 124 L (137-145) mmol/L Chloride 88 L (98-107) mmol/L Glucose 108 H (74-99) mg/dL Total Bilirubin 1.8 H (0.2-1.3) mg/dL Urine Ketones 1+ H (Negative) Assessment and Plan Plan: Hyponatremia, suspected due to polydipsia w/ Chlorthalidone use -Urine sodium pending - will calculate FeNa -Bladder scan ordered -Monitor BMP q8h -Hold off on IV fluids at this time -Hold diuretics Thrombocytopenia, chronic -Monitor for now Chronic conditions: Hypothyroidism, hypertension, hyperlipidemia -Continue with home medications DVT prophylaxis -IPCDs The patient is admitted with an anticipated less than 2 midnight stay for evaluation of hyponatremia CODE STATUS: Full Code Discussed with: Patient, Daughter Anticipated discharge date: in am Anticipated discharge place: Home A total of 35 minutes was spent on the care of this complex patient more than 50% of the time was spent in counseling and care coordination.
[2020-08-19 23:12] LABS: African American GFR (CKD) >90 (>60 ml/min/1.73 sqM); Anion Gap 11 mmol/L; Blood Urea Nitrogen 11 mg/dL (7-17); Calcium 9.6 mg/dL (8.4-10.2); Carbon Dioxide 24 mmol/L (22-30); Chloride 93 mmol/L (98-107); Glucose 109 mg/dL (74-99); Non-African American GFR(CKD) 82 (>60 ml/min/1.73 sqM); Potassium 3.2 mmol/L (3.5-5.1); Sodium 128 mmol/L (137-145)
--- NOTE | 2020-08-20 03:10 | P.PN ---
Progress Note - Text Progress Note Date: 08/20/20 Advanced Care Planning Active Diagnosis: Hyponatremia Persons present: Patient, daughter Summary: Discussed the patient's goals of care in great detail. The patient had not previously discussed her wishes regarding CPR or life support and was not aware of her options. Discussed different forms of life support offered along with the caveats of CPR. The patient noted that although she is older, she feels that her quality of life is excellent and that she needs time to think about what she would want in the event of a cardiac arrest or if she required life-support. The patient noted that she will discuss this with her family further and will get back to the medical team. Time spent: Total time spent face to face in education and discussion directly related to advanced care plannin minutes
[2020-08-20] MEDS: POTASSIUM CHLORIDE ER 20 MEQ TAB.ER PO SCH ×2 (03:32→05:46)
[2020-08-20] MEDS: LEVOTHYROXINE 112 MCG TAB PO SCH (05:46)
[2020-08-20 05:57] VITALS: RESP 18
[2020-08-20] MEDS: ASPIRIN 81 MG PO SCH (08:07)
[2020-08-20] MEDS: allopurinoL 100 MG TAB PO SCH (08:07)
[2020-08-20] MEDS: atenoloL 50 MG TAB PO SCH (08:08)
[2020-08-20 08:44] LABS: African American GFR (CKD) 92.2 (60.0-200.0); Anion Gap 8.2 mmol/L (4.00-12.00); BUN/Creat Ratio 18.57 Ratio (12.00-20.00); Calcium 9.4 mg/dL (8.7-10.3); Carbon Dioxide 26.8 mmol/L (21.6-31.8); Non-African American GFR(CKD) 79.6 (60.0-200.0)
[2020-08-20] MEDS ORDERED: amLODIPine 5 MG TAB PO SCH (09:00)
[2020-08-20] MEDS ORDERED: lisinopriL 20 MG TAB PO SCH (09:00)
--- NOTE | 2020-08-20 15:59 | P.PN ---
Subjective Progress Note Date: 08/20/20 Patient is doing well today. Her lipase lab work this morning was not done until 11 and even though he was ordered stat he was sent out to [place] and I will have any results as of yet. Objective - Vital Signs Vital signs: Vital Signs Temp 98.2 F 08/20/20 12:07 Pulse 62 08/20/20 12:07 Resp 18 08/20/20 12:07 BP 163/67 08/20/20 12:07 Pulse Ox 97 08/20/20 12:07 Intake & Output 08/19/20 08/20/20 08/20/20 18:59 06:59 18:59 Intake Total 1940 Balance 1940 Weight 86.183 kg 86.183 kg Intake: Intake, IV Titration 1100 Amount Sodium Chloride 0.9% 1, 200 000 ml @ 100 mls/hr IV . Q10H CHIKI Rx#:[id number] Sodium Chloride 0.9% 1, 900 000 ml @ 999 mls/hr IV . Q1H1M STA Rx#:[id number] Oral 840 Other: Voiding Method Toilet Toilet Diaper Diaper # Voids 1 - Exam General: The patient is awake and alert, in no distress Eye: there is normal conjunctiva bilaterally. Neck: The neck is supple, there is no JVD. Cardiovascular: Normal S1-S2, no S3-S4, no murmurs. Respiratory: Lungs clear to auscultation bilaterally Gastrointestinal: Abdomen is soft, nontender Musculoskeletal: There is no pedal edema. Neurological:. Speech is normal. Skin: Skin is warm and dry - Labs CBC & Chem 7: 08/19/20 17:06 08/20/20 02:59 Labs: Abnormal Lab Results - Last 24 Hours (Table) 08/19/20 08/19/20 08/19/20 Range/Units 17:06 17:06 17:06 Plt Count 97 L (150-450) k/uL Sodium 124 L (137-145) mmol/L Potassium (3.5-5.1) mmol/L Chloride 88 L (98-107) mmol/L Glucose 108 H (74-99) mg/dL Osmolality (280-301) mosm/kg Total Bilirubin 1.8 H (0.2-1.3) mg/dL Urine Ketones 1+ H (Negative) 0108/19/20 08/20/20 Range/Units 17:06 22:24 02:59 Plt Count (150-450) k/uL Sodium 128 L 131 L (137-145) mmol/L Potassium 3.2 L 3.0 L (3.5-5.1) mmol/L Chloride 93 L (98-107) mmol/L Glucose 109 H (74-99) mg/dL Osmolality 258 L (280-301) mosm/kg Total Bilirubin (0.2-1.3) mg/dL Urine Ketones (Negative) Assessment and Plan Assessment: Hyponatremia, suspected due to polydipsia w/ Chlorthalidone use -Bladder with no evidence of retention -Awaiting repeat lab work -Hold off on IV fluids at this time -Hold diuretics Thrombocytopenia, chronic -Monitor for now Chronic conditions: Hypothyroidism, hypertension, hyperlipidemia -Continue with home medications DVT prophylaxis -IPCDs
[2020-08-20 16:12] LABS: African American GFR (CKD) 78.5 (60.0-200.0); Anion Gap 10.5 mmol/L (4.00-12.00); BUN/Creat Ratio 16.25 Ratio (12.00-20.00); Calcium 9.7 mg/dL (8.7-10.3); Carbon Dioxide 24.5 mmol/L (21.6-31.8); Magnesium 1.6 mg/dL (1.5-2.4); Non-African American GFR(CKD) 67.7 (60.0-200.0); Potassium 3.8 mmol/L (3.5-5.5)
[2020-08-20] MEDS: amLODIPine 5 MG TAB PO SCH (20:26)
[2020-08-21] MEDS: LEVOTHYROXINE 112 MCG TAB PO SCH (05:25)
--- NOTE | 2020-08-21 08:52 | P.DS ---
Providers Date of admission: 08/19/20 17:58 Expected date of discharge: 08/21/20 Attending physician: Baron Davies MD Primary care physician: BERT Hernandez Hospital Course: This is a 85-year-old female with past medical history noted below who presented to the emergency room with complaint of difficulty urinating. Patient was evaluated in the ER and and urinalysis with no evidence of infection. Bladder scan showed no urinary retention. Patient was admitted to the hospital for further management of her medical problems noted below. 1. Hyponatremia, sodium level of 124 on presentation. Probably secondary to diuretic use and polydipsia. Her sodium level improved gradually after discontinuation of diuretics and fluid restrictions to 2 L per day. Sodium level at the time of discharge 132 2. Essential hypertension: Blood pressure within acceptable range. Lasix and chlorthalidone discontinued. Avoid diuretics in the future. Continue to monitor blood pressure at home closely and follow up with PCP as directed 3. Chronic medical problems: Hypothyroidism, hypertension, hyperlipidemia, chronic thrombocytopenia Patient Condition at Discharge: Fair Plan - Discharge Summary New Discharge Prescriptions: New Atenolol [Tenormin] 100 mg PO DAILY #30 tab Continue Magnesium Oxide [Mag-Ox] 400 mg PO BID allopurinoL [Zyloprim] 100 mg PO DAILY Ergocalciferol (Vitamin D2) [Vitamin D2] 50,000 unit PO Q30D Multivitamins, Thera [Multivitamin (formulary)] 1 tab PO DAILY Enalapril [Vasotec] 20 mg PO BID Aspirin 81 mg PO DAILY Psyllium Husk 100% [Metamucil Packet] 1 packet PO HS Levothyroxine Sodium [Synthroid] 112 mcg PO DAILY Famotidine [Pepcid] 20 mg PO DAILY PRN PRN Reason: Gi Upset Calcium Carb/Magnesium Hydrox [Rolaids Chewable Tablet] 1 tab PO Q4H PRN PRN Reason: Gi Upset amLODIPine [Norvasc] 5 mg PO DAILY Discontinued Furosemide [Lasix] 20 mg PO DAILY PRN PRN Reason: Edema Atenolol/Chlorthalidone [Atenolol-Chlorthalidone 100-25] 0.5 tab PO HS Atenolol/Chlorthalidone [Atenolol-Chlorthalidone 100-25] 1 tab PO DAILY Potassium Chloride [Klor-Con 10] 20 meq PO BID Discharge Medication List Aspirin 81 mg PO DAILY 09/30/17 [History] Enalapril [Vasotec] 20 mg PO BID 09/30/17 [History] Ergocalciferol (Vitamin D2) [Vitamin D2] 50,000 unit PO Q30D 09/30/17 [History] Magnesium Oxide [Mag-Ox] 400 mg PO BID 09/30/17 [History] Multivitamins, Thera [Multivitamin (formulary)] 1 tab PO DAILY 09/30/17 [ History] Psyllium Husk 100% [Metamucil Packet] 1 packet PO HS 09/30/17 [History] allopurinoL [Zyloprim] 100 mg PO DAILY 09/30/17 [History] Calcium Carb/Magnesium Hydrox [Rolaids Chewable Tablet] 1 tab PO Q4H PRN 08/19/20 [History] Famotidine [Pepcid] 20 mg PO DAILY PRN 08/19/20 [History] Levothyroxine Sodium [Synthroid] 112 mcg PO DAILY 08/19/20 [History] amLODIPine [Norvasc] 5 mg PO DAILY 08/19/20 [History] Atenolol [Tenormin] 100 mg PO DAILY #30 tab 08/21/20 [Rx] Follow up Appointment(s)/Referral(s): Ayala Carey NPC [Primary Care Provider] - 1-2 days Discharge Disposition: HOME SELF-CARE
[2020-08-21] MEDS ORDERED: lisinopriL 20 MG TAB PO SCH (09:00)
[2020-08-21] MEDS: ASPIRIN 81 MG PO SCH (09:23)
[2020-08-21] MEDS: allopurinoL 100 MG TAB PO SCH (09:24)
[2020-08-21] MEDS: atenoloL 50 MG TAB PO SCH (09:24)
[2020-08-21] MEDS: amLODIPine 5 MG TAB PO SCH (09:38)
[2020-08-21 09:55] VITALS: BP 118/67; PULSE 96; TEMP 97.9
== END 2020-08-21 14:01 | disposition home or self-care (01) | DRG 641 ==
LOC: EC 16:10 → 5NMEDONC 17:58
PROVIDERS: ADMIT Internal Medicine; ATTEND Internal Medicine
DX: E87.1 Hypo-osmolality and hyponatremia (principal); I10 Essential (primary) hypertension; E78.5 Hyperlipidemia, unspecified; E03.9 Hypothyroidism, unspecified; D69.6 Thrombocytopenia, unspecified; Z20.822 Contact with and (suspected) exposure to COVID-19; E86.0 Dehydration; R63.1 Polydipsia; T50.2X5A Adverse effect of carbonic-anhydrase inhibitors, benzothiadiazides and other diuretics, initial encounter; Z79.82 Long term (current) use of aspirin; Z79.890 Hormone replacement therapy; Z79.899 Other long term (current) drug therapy
CPT/HCPCS: 36415; 80048; 80053; 81003; 82570; 83735; 83930; 83935; 84300; 85025; 87635; 96360; 99285

== ENCOUNTER 2020-09-04 10:15 | Observation (INO) | payer MEDICARE, BC ==
--- NOTE | 2020-09-04 10:32 | ED ---
General Adult HPI - General Chief complaint: Chest Pain Stated complaint: high bp/chest is burning Time Seen by Provider: 09/04/20 10:18 Source: patient, family Mode of arrival: EMS Limitations: no limitations - History of Present Illness Initial comments: Dictation was produced using [employer] dictation software. please excuse any grammatical, word or spelling errors. This patient was cared for during a federal and state declared state of emergen cy secondary to Covid 19 Chief Complaint: 85-year-old female with past medical history of dyslipidemia hypertension thyroid disease presents with chest pain History of Present Illness: Is a 85-year-old female she has past medical history dyslipidemia and hypertension. She denies any cardiac history. Patient states she's been having a chest discomfort that radiates to the bilateral upper extremities. She describes it as burning. She was evaluated last week she was told her symptoms are secondary to indigestion. States that sometimes her symptoms are exacerbated with oral intake. Patient has any cardiac disease. States that her symptoms have been getting worse. States she is asymptomatic the month but she did have some symptoms earlier this morning. No associated diaphoresis. The ROS documented in this emergency department record has been reviewed and confirmed by me. Those systems with pertinent positive or negative responses have been documented in the HPI. All other systems are other negative and/or noncontributory. PHYSICAL EXAM: General Impression: Alert and oriented x3, not in acute distress HEENT: Normocephalic atraumatic, extra-ocular movements intact, pupils equal and reactive to light bilaterally, mucous membranes moist. Cardiovascular: Heart regular rate and rhythm Chest: Able to complete full sentences, no retractions, no tachypnea Abdomen: abdomen soft, non-tender, non-distended, no organomegaly Musculoskeletal: Pulses present and equal in all extremities, no peripheral edema Motor: no focal deficits noted Neurological: CN II-XII grossly intact, no focal motor or sensory deficits noted Skin: Intact with no visualized rashes Psych: Normal affect and mood ED course: 85-year-old female presents with atypical chest pain typical featur es. Her physical examination is benign. As upon arrival are within acceptable limits. Patient does have cardiac risk factors. She has been having progressive symptoms over the last 7 days. She reports a no symptoms at this time.Laboratory evaluation obtained. CBC, coag panel, metabolic panel is unremarkable. First troponin is negative. Chest x-ray is nonacute. Patient given aspirin. Patient reevaluated bedside again stable medical condition. She is not tachycardic or hypoxic. Clinical presentation concerning for atypical chest pain with typical features. Disposition options were discussed with patient. She is agreeable for observation admission. Patient given aspirin. Cardiology will be consulted. Patient will be admitted to [facility]. EKG interpretation: Ventricular rate 77, sinus rhythm with first-degree AV block, MA interval 212, QRS 90, QTC 426. No MA prolongation, no QTC prolongation, no ST or T-wave changes noted. No old EKG for comparison. Overall, this EKG is unremarkable - Related Data Home Medications Medication Instructions Recorded Confirmed Aspirin 81 mg PO DAILY 09/30/17 09/04/20 Enalapril [Vasotec] 20 mg PO BID 09/30/17 09/04/20 Ergocalciferol (Vitamin D2) 50,000 unit PO Q30D 09/30/17 09/04/20 [Vitamin D2] Magnesium Oxide [Mag-Ox] 400 mg PO BID 09/30/17 09/04/20 Multivitamins, Thera [Multivitamin 1 tab PO DAILY 09/30/17 09/04/20 (formulary)] Psyllium Husk 100% [Metamucil 6 gm PO HS 09/30/17 09/04/20 Packet] allopurinoL [Zyloprim] 100 mg PO DAILY 09/30/17 09/04/20 Calcium Carb/Magnesium Hydrox 1 tab PO Q4H PRN 08/19/20 09/04/20 [Rolaids Chewable Tablet] Famotidine [Pepcid] 20 mg PO DAILY PRN 08/19/20 09/04/20 Levothyroxine Sodium [Synthroid] 112 mcg PO DAILY 08/19/20 09/04/20 amLODIPine [Norvasc] 5 mg PO DAILY 08/19/20 09/04/20 Previous Rx's Medication Instructions Recorded Atenolol [Tenormin] 100 mg PO DAILY #30 tab 08/21/20 Allergies Allergy/AdvReac Type Severity Reaction Status Date / Time atorvastatin [From Lipitor] Allergy Rash/Hives Verified 09/04/20 11:02 hydralazine Allergy Rash/Hives Verified 09/04/20 11:02 Penicillins Allergy Rash/Hives Verified 09/04/20 11:02 Sulfa (Sulfonamide Allergy Rash/Hives Verified 09/04/20 11:02 Antibiotics) banana AdvReac Vomiting Verified 09/04/20 11:02 codeine AdvReac Vomiting Verified 09/04/20 11:02 hydrocodone [From Vicodin] AdvReac Vomiting Verified 09/04/20 11:02 propoxyphene AdvReac Confusion Verified 09/04/20 11:02 [From Darvocet-N] Review of Systems ROS Statement: Those systems with pertinent positive or pertinent negative responses have been documented in the HPI. ROS Other: All systems not noted in ROS Statement are negative. Past Medical History Past Medical History: Hyperlipidemia, Hypertension, Thyroid Disorder History of Any Multi-Drug Resistant Organisms: None Reported Past Surgical History: Back Surgery, Cholecystectomy, Orthopedic Surgery, Tubal Ligation Past Psychological History: No Psychological Hx Reported Smoking Status: Never smoker Past Alcohol Use History: None Reported Past Drug Use History: None Reported General Exam Limitations: no limitations Course Vital Signs 09/04/20 09/04/20 09/04/20 10:17 10:57 12:51 Temperature 98.8 F 97.9 F 97.6 F Pulse Rate 69 64 71 Respiratory 18 16 16 Rate Blood Pressure 159/72 153/76 145/82 O2 Sat by Pulse 96 98 98 Oximetry Medical Decision Making - Lab Data Result diagrams: 09/04/20 11:32 09/04/20 11:32 Lab Results 09/04/20 09/04/20 09/04/20 Range/Units 11:32 11:32 11:32 WBC 8.6 (3.8-10.6) k/uL RBC 4.80 (3.80-5.40) m/uL Hgb 14.9 (11.4-16.0) gm/dL Hct 43.7 (34.0-46.0) % MCV 91.0 (80.0-100.0) fL MCH 31.1 (25.0-35.0) pg MCHC 34.2 (31.0-37.0) g/dL RDW 12.8 (11.5-15.5) % Plt Count 93 L (150-450) k/uL MPV 7.9 Neutrophils % 75 % Lymphocytes % 16 % Monocytes % 6 % Eosinophils % 1 % Basophils % 0 % Neutrophils # 6.5 (1.3-7.7) k/uL Lymphocytes # 1.4 (1.0-4.8) k/uL Monocytes # 0.5 (0-1.0) k/uL Eosinophils # 0.1 (0-0.7) k/uL Basophils # 0.0 (0-0.2) k/uL Manual Slide Review Performed PT 10.5 (9.0-12.0) sec INR 1.0 (<1.2) APTT 25.6 (22.0-30.0) sec Sodium (137-145) mmol/L Potassium (3.5-5.1) mmol/L Chloride (98-107) mmol/L Carbon Dioxide (22-30) mmol/L Anion Gap mmol/L BUN (7-17) mg/dL Creatinine (0.52-1.04) mg/dL Est GFR (CKD-EPI)AfAm (>60 ml/min/1.73 sqM) Est GFR (CKD-EPI)NonAf (>60 ml/min/1.73 sqM) Glucose (74-99) mg/dL Calcium (8.4-10.2) mg/dL Magnesium (1.6-2.3) mg/dL Total Bilirubin (0.2-1.3) mg/dL AST (14-36) U/L ALT (4-34) U/L Alkaline Phosphatase (38-126) U/L Troponin I <0.012 (0.000-0.034) ng/mL Total Protein (6.3-8.2) g/dL Albumin (3.5-5.0) g/dL 09/04/20 Range/Units 11:32 WBC (3.8-10.6) k/uL RBC (3.80-5.40) m/uL Hgb (11.4-16.0) gm/dL Hct (34.0-46.0) % MCV (80.0-100.0) fL MCH (25.0-35.0) pg MCHC (31.0-37.0) g/dL RDW (11.5-15.5) % Plt Count (150-450) k/uL MPV Neutrophils % % Lymphocytes % % Monocytes % % Eosinophils % % Basophils % % Neutrophils # (1.3-7.7) k/uL Lymphocytes # (1.0-4.8) k/uL Monocytes # (0-1.0) k/uL Eosinophils # (0-0.7) k/uL Basophils # (0-0.2) k/uL Manual Slide Review PT (9.0-12.0) sec INR (<1.2) APTT (22.0-30.0) sec Sodium 133 L (137-145) mmol/L Potassium 4.1 (3.5-5.1) mmol/L Chloride 98 (98-107) mmol/L Carbon Dioxide 24 (22-30) mmol/L Anion Gap 11 mmol/L BUN 9 (7-17) mg/dL Creatinine 0.70 (0.52-1.04) mg/dL Est GFR (CKD-EPI)AfAm >90 (>60 ml/min/1.73 sqM) Est GFR (CKD-EPI)NonAf 80 (>60 ml/min/1.73 sqM) Glucose 105 H (74-99) mg/dL Calcium 10.2 (8.4-10.2) mg/dL Magnesium 1.8 (1.6-2.3) mg/dL Total Bilirubin 1.7 H (0.2-1.3) mg/dL AST 26 (14-36) U/L ALT 14 (4-34) U/L Alkaline Phosphatase 57 (38-126) U/L Troponin I (0.000-0.034) ng/mL Total Protein 7.5 (6.3-8.2) g/dL Albumin 4.3 (3.5-5.0) g/dL Disposition Clinical Impression: Chest pain Disposition: ADMITTED IP TO THIS HOSP Condition: Fair Referrals: Ayala Carey NPC [Primary Care Provider] - 1-2 days Decision Time: 12:56
[2020-09-04 11:57] LABS: Basophils % (A) 0 %; Eosinophils # (A) 0.1 k/uL (0-0.7); Eosinophils % (A) 1 %; HCT 43.7 % (34.0-46.0); HGB 14.9 gm/dL (11.4-16.0); Lymphocytes # (A) 1.4 k/uL (1.0-4.8); Lymphocytes % (A) 16 %; MCH 31.1 pg (25.0-35.0); MCHC 34.2 g/dL (31.0-37.0); Mean Platelet Volume 7.9; Monocytes # (A) 0.5 k/uL (0-1.0); Monocytes % (A) 6 %; Neutrophils # (A) 6.5 k/uL (1.3-7.7); Neutrophils % (A) 75 %; RDW 12.8 % (11.5-15.5); WBC 8.6 k/uL (3.8-10.6)
--- NOTE | 2020-09-04 12:03 | XR ---
EXAMINATION TYPE: XR chest 2V DATE OF EXAM: 09/04/2020 COMPARISON: NONE TECHNIQUE: PA and lateral views submitted. HISTORY: Chest pain FINDINGS: The lungs are clear and there is no pneumothorax, pleural effusion, or focal pneumonia. Elevated ri ght hemidiaphragm. Heart size normal. No overt failure. Arthropathy of the shoulders. Degenerative ch dominik of the spine. Surgical clips in the abdomen. Atherosclerotic change aorta. IMPRESSION: 1. No acute process.
[2020-09-04 12:13] LABS: ALT 14 U/L (4-34); AST 26 U/L (14-36); African American GFR (CKD) >90 (>60 ml/min/1.73 sqM); Albumin 4.3 g/dL (3.5-5.0); Alkaline Phosphatase 57 U/L (38-126); Anion Gap 11 mmol/L; Blood Urea Nitrogen 9 mg/dL (7-17); Calcium 10.2 mg/dL (8.4-10.2); Carbon Dioxide 24 mmol/L (22-30); Chloride 98 mmol/L (98-107); Glucose 105 mg/dL (74-99); Magnesium 1.8 mg/dL (1.6-2.3); Non-African American GFR(CKD) 80 (>60 ml/min/1.73 sqM); Partial Thromboplastin Time 25.6 sec (22.0-30.0); Potassium 4.1 mmol/L (3.5-5.1); Prothrombin Time 10.5 sec (9.0-12.0); Sodium 133 mmol/L (137-145); Total Bilirubin 1.7 mg/dL (0.2-1.3); Total Protein 7.5 g/dL (6.3-8.2)
[2020-09-04 12:17] LABS: Platelet Count 93 k/uL (150-450)
[2020-09-04] MEDS ORDERED: ASPIRIN 81 MG PO STA (12:45)
[2020-09-04] MEDS ORDERED: NITROGLYCERIN SL TABS 0.4 MG TAB SUBLINGUAL PRN (12:53)
[2020-09-04] MEDS ORDERED: MAG HYDROX/AL HYDROX/SIMETH 30 ML CUP PO PRN (14:01)
[2020-09-04] MEDS ORDERED: ACETAMINOPHEN TAB 325 MG TAB PO PRN (14:01)
--- NOTE | 2020-09-04 14:07 | P.HPIM ---
History of Present Illness H&P Date: 09/04/20 Chief Complaint: Burning sensation in the chest This is a 85-year-old female with past medical history noted below significant for essential hypertension and hyperlipidemia who presented to the emergency room with burning sensation in her chest. Patient said that for the past week she has been having problems with indigestion and acid reflux and has been taking Pepcid with good relief. Today, she noted that her heart burning is worse and was radiating to her right arm and right shoulder so she decided to come to the emergency room for further evaluation. She denies any attila chest pain. She rates her discomfort as 3 out of 10 in severity. She denies any diaphoresis or nausea. Reports chronic exertional dyspnea. Patient otherwise denies any cardiac history. Does not recall having a stress test in the recent past. She was recently hospitalized in the beginning of the month for hyponatremia and discharged home after discontinuation of her diuretics. She reports having worsening edema in her lower extremities throughout the day. When she wakes up in the morning she does not have any edema. Review of Systems Review of system: 14 points review of systems were obtained and were negative except to what were mentioned in the HPI. Past Medical History Past Medical History: Hyperlipidemia, Hypertension, Thyroid Disorder History of Any Multi-Drug Resistant Organisms: None Reported Past Surgical History: Back Surgery, Cholecystectomy, Orthopedic Surgery, Tubal Ligation Past Psychological History: No Psychological Hx Reported Smoking Status: Never smoker Past Alcohol Use History: None Reported Past Drug Use History: None Reported Medications and Allergies Home Medications Medication Instructions Recorded Confirmed Type Aspirin 81 mg PO DAILY 09/30/17 09/04/20 History Enalapril [Vasotec] 20 mg PO BID 09/30/17 09/04/20 History Ergocalciferol (Vitamin D2) 50,000 unit PO Q30D 09/30/17 09/04/20 History [Vitamin D2] Magnesium Oxide [Mag-Ox] 400 mg PO BID 09/30/17 09/04/20 History Multivitamins, Thera [Multivitamin 1 tab PO DAILY 09/30/17 09/04/20 History (formulary)] Psyllium Husk 100% [Metamucil 6 gm PO HS 09/30/17 09/04/20 History Packet] allopurinoL [Zyloprim] 100 mg PO DAILY 09/30/17 09/04/20 History Calcium Carb/Magnesium Hydrox 1 tab PO Q4H PRN 08/19/20 09/04/20 History [Rolaids Chewable Tablet] Famotidine [Pepcid] 20 mg PO DAILY PRN 08/19/20 09/04/20 History Levothyroxine Sodium [Synthroid] 112 mcg PO DAILY 08/19/20 09/04/20 History amLODIPine [Norvasc] 5 mg PO DAILY 08/19/20 09/04/20 History Atenolol [Tenormin] 100 mg PO DAILY #30 tab 08/21/20 09/04/20 Rx Allergies Allergy/AdvReac Type Severity Reaction Status Date / Time atorvastatin [From Lipitor] Allergy Rash/Hives Verified 09/04/20 11:02 hydralazine Allergy Rash/Hives Verified 09/04/20 11:02 Penicillins Allergy Rash/Hives Verified 09/04/20 11:02 Sulfa (Sulfonamide Allergy Rash/Hives Verified 09/04/20 11:02 Antibiotics) banana AdvReac Vomiting Verified 09/04/20 11:02 codeine AdvReac Vomiting Verified 09/04/20 11:02 hydrocodone [From Vicodin] AdvReac Vomiting Verified 09/04/20 11:02 propoxyphene AdvReac Confusion Verified 09/04/20 11:02 [From Darvocet-N] Physical Exam Vitals: Vital Signs Temp Pulse Resp BP Pulse Ox 09/04/20 13:39 97.6 F 70 18 156/76 98 09/04/20 12:51 97.6 F 71 16 145/82 98 09/04/20 10:57 97.9 F 64 16 153/76 98 09/04/20 10:17 98.8 F 69 18 159/72 96 Intake and Output 09/03/20 09/04/20 09/04/20 22:59 06:59 14:59 Other: Weight 82.1 kg General: The patient is awake and alert, in no distress Eye: there is normal conjunctiva bilaterally. Neck: The neck is supple, there is no JVD. Cardiovascular: Normal S1-S2, no S3-S4, no murmurs. Respiratory: Lungs clear to auscultation bilaterally Gastrointestinal: Abdomen is soft, nontender Musculoskeletal: There is no pedal edema. Neurological:. Speech is normal. Skin: Skin is warm and dry Results CBC & Chem 7: 09/04/20 11:32 09/04/20 11:32 Labs: Abnormal Lab Results - Last 24 Hours (Table) 09/04/20 09/04/20 Range/Units 11:32 11:32 Plt Count 93 L (150-450) k/uL Sodium 133 L (137-145) mmol/L Glucose 105 H (74-99) mg/dL Total Bilirubin 1.7 H (0.2-1.3) mg/dL Assessment and Plan Assessment: 1. Burning in the chest, with no attila chest pain. 12-lead EKG in the ER showed no acute ischemic changes. Initial troponin is negative. Cardiology consulted by the ER staff. We will continue telemetry monitoring. Trend troponin 2. GERD, symptoms not well controlled with Pepcid. I would switch patient to Protonix and use Maalox as needed 3. Chronic venous insufficiency, advised to wear compression stocking when she wakes up until bedtime. Her son at bedside with assistance putting compression stocking on. 4. Essential hypertension: Blood pressure not well controlled. We will continue to monitor closely and adjust regimen as needed. Avoid diuretic use. Check manual blood pressure to confirm readings 5. Chronic medical problems: Hypothyroidism, hyperlipidemia, chronic thrombocytopenia 6. DVT prophylaxis with subcu heparin 7. Patient is full code
[2020-09-04] MEDS: lisinopriL 20 MG TAB PO SCH (20:27)
[2020-09-04] MEDS: MAGNESIUM OXIDE 400 MG TAB PO SCH (20:27)
[2020-09-04] MEDS: HEPARIN SODIUM,PORCINE 5,000 UNIT/ML 1 ML VIAL SQ SCH (20:30)
[2020-09-04] MEDS ORDERED: PSYLLIUM HUSK 100% 6 GM PACKET PO SCH (21:00)
[2020-09-05 03:48] LABS: Cholesterol 183 mg/dL (<200); HDL Cholesterol 60 mg/dL (40-60); LDL Cholesterol,Calculated 92 mg/dL (0-99); Triglycerides 153 mg/dL (<150)
[2020-09-05] MEDS ORDERED: LEVOTHYROXINE 112 MCG TAB PO SCH (06:30)
[2020-09-05] MEDS ORDERED: PANTOPRAZOLE 40 MG TABLET PO SCH (07:30)
[2020-09-05 07:48] VITALS: BP 158/92; PULSE 71; RESP 16; TEMP 98.2
[2020-09-05] MEDS ORDERED: allopurinoL 100 MG TAB PO SCH (09:00)
[2020-09-05] MEDS ORDERED: ASPIRIN 81 MG PO SCH (09:00)
[2020-09-05] MEDS ORDERED: atenoloL 50 MG TAB PO SCH (09:00)
[2020-09-05] MEDS ORDERED: amLODIPine 5 MG TAB PO SCH (09:00)
[2020-09-05] MEDS ORDERED: ASPIRIN 325 MG TAB PO SCH (09:00)
[2020-09-05] MEDS ORDERED: MULTIVITAMINS, THERA 1 EACH TAB PO SCH (09:00)
[2020-09-05] MEDS ORDERED: DOBUTamine DRIP for NUC MED 500 MG in DEXTROSE/WATER 1 250ML.BAG IV PRN (09:13)
[2020-09-05] MEDS ORDERED: amLODIPine 10 MG TAB PO SCH (09:15)
[2020-09-05] MEDS ORDERED: lisinopriL 20 MG TAB PO SCH (09:15)
[2020-09-05] MEDS: HEPARIN SODIUM,PORCINE 5,000 UNIT/ML 1 ML VIAL SQ SCH (09:32)
[2020-09-05] MEDS: MAGNESIUM OXIDE 400 MG TAB PO SCH (09:32)
[2020-09-05] MEDS: lisinopriL 20 MG TAB PO SCH (10:11)
--- NOTE | 2020-09-05 11:41 | P.CRDCN ---
History of Present Illness History of present illness: HISTORY OF PRESENTING ILLNESS This is a pleasant 85-year-old female past medical history significant for hypertension, dyslipidemia and hypothyroidism. Denies prior history of cor onary artery disease and does not follow in the office with a college teacher. We have been asked to see in consultation for chest pain. She presented to the hospital with symptoms of burning discomfort in the midsternal region that radiates to her shoulders bilaterally and across her back. She saw her PCP and came to the emergency room recently for similar type episode and was diagnosed with indigestion and started on Pepcid. She states she's been taking the Pepcid daily for the previous 2 weeks but continues to have symptoms. She is currently chest pain-free. She denies associated shortness of breath, dizziness, palpitations, nausea, vomiting or diaphoresis. DIAGNOSTICS EKG reveals sinus mechanism with poor R-wave progression first-degree AV block. Telemetry tracings indicate sinus mechanism. Chest xray negative for an acute cardiopulmonary process. Laboratory reviewed, it was 93, sodium 133, potassium 4.1, creatinine 0.7, magnesium 1.8, cardiac enzymes negative 3, LDL 93 and HDL 60. Current cardiac medications include aspirin 81 mg daily, atenolol 100 mg daily, enalapril 20 mg twice a day and amlodipine 5 mg daily. REVIEW OF SYSTEMS At the time of my exam: CONSTITUTIONAL: Denies fever or chills. CARDIOVASCULAR: Denies chest pain, shortness of breath, orthopnea, PND or p alpitations. RESPIRATORY: Denies cough. GASTROINTESTINAL: Denies abdominal pain, diarrhea, constipation, nausea or vomiting. MUSCULOSKELETAL: Denies myalgias. NEUROLOGIC: Denies numbness, tingling, headacbe or weakness. ENDOCRINE: Denies fatigue, weight change, polydipsia or polyurina. GENITOURINARY: Denies burning, hematuria or urgency with micturation. HEMATOLOGIC: Denies history of anemia or bleeding. PHYSICAL EXAMINATION Blood pressure 158/92 heart rate 71 afebrile and maintaining oxygen saturation on room air. CONSTITUTIONAL: No apparent distress. HEENT: Head is normocephalic. Pupils are equal, round. Sclerae anicteric. Mucous membranes of the mouth are moist. No JVD. No carotid bruit. CHEST EXAMINATION: Lungs are clear to auscultation. No chest wall tenderness is noted on palpation or with deep breathing. HEART EXAMINATION: Regular rate and rhythm. S1, S2 heard. No murmurs, gallops or rub. ABDOMEN: Soft, nontender. Positive bowel sounds. EXTREMITIES: 2+ peripheral pulses, no lower extremity edema and no calf tenderness. NEUROLOGIC EXAMINATION: Patient is awake, alert and oriented x3. ASSESSMENT Chest pain Hypertension Dyslipidemia Thrombocytopenia PLAN An acute coronary event has been ruled out. Decrease lisinopril to 20 mg BID, 40 BID is too much. Increase amlodipine to 10 mg daily for optimal blood pressure control. Perform dobutamine stress echocardiogram to assess for stress induced ischemia. We will send a prescription for crestor to the pharmacy for her to take daily upon discharge. If stress test is normal she can be discharge home and follow up with Dr. Rod in the office in 3-4 weeks. Thank you kindly for this consultation. Nurse Practitioner note has been reviewed, I agree with a documented findings and plan of care. Patient was seen and examined. Past Medical History Past Medical History: GERD/Reflux, Hearing Disorder / Deafness, Hyperlipidemia, Hypertension, Osteoarthritis (OA), Rheumatoid Arthritis (RA), Thyroid Disorder, Vascular Disorder Additional Past Medical History / Comment(s): Pt recently admitted to [facility] on 08/19/20 with hyponatremia. Other hx: Exertional dyspnea, chronic venous insufficiency, hypothyroid, diverticular disease, external hemmo rrhoid/occasionally bleeds, vertigo in AM, UNGA bilaterally with L ear worse, tinnitis bilaterally with L ear worse, lower leg edema in the evening/gone in AM. History of Any Multi-Drug Resistant Organisms: None Reported Past Surgical History: Back Surgery, Cholecystectomy, Joint Replacement, Orthopedic Surgery, Tubal Ligation Additional Past Surgical History / Comment(s): Bilateral total knee arthroplasties, L shoulder rotator cuff, L ankle ORIF, low back surgery, bilateral carpal tunnel releases, bilateral cataract removal, colonoscopy. Past Anesthesia/Blood Transfusion Reactions: Postoperative Nausea & Vomiting (PONV) Additional Past Anesthesia/Blood Transfusion Reaction / Comment(s): Pt has clausterphobia. Past Psychological History: No Psychological Hx Reported Additional Psychological History / Comment(s): Pt resides alone. She uses a walking stick to go out and get her mail. She drives. Smoking Status: Never smoker Past Alcohol Use History: Rare Past Drug Use History: None Reported - Past Family History Father Family Medical History: Cancer, Rheumatoid Arthritis (RA) Additional Family Medical History / Comment(s): Prostate cancer Mother Family Medical History: Cancer, Thyroid Disorder Additional Family Medical History / Comment(s): Cervical cancer. Medications and Allergies Home Medications Medication Instructions Recorded Confirmed Type Aspirin 81 mg PO DAILY 09/30/17 09/04/20 History Enalapril [Vasotec] 20 mg PO BID 09/30/17 09/04/20 History Ergocalciferol (Vitamin D2) 50,000 unit PO Q30D 09/30/17 09/04/20 History [Vitamin D2] Magnesium Oxide [Mag-Ox] 400 mg PO BID 09/30/17 09/04/20 History Multivitamins, Thera [Multivitamin 1 tab PO DAILY 09/30/17 09/04/20 History (formulary)] Psyllium Husk 100% [Metamucil 6 gm PO HS 09/30/17 09/04/20 History Packet] allopurinoL [Zyloprim] 100 mg PO DAILY 09/30/17 09/04/20 History Calcium Carb/Magnesium Hydrox 1 tab PO Q4H PRN 08/19/20 09/04/20 History [Rolaids Chewable Tablet] Famotidine [Pepcid] 20 mg PO DAILY PRN 08/19/20 09/04/20 History Levothyroxine Sodium [Synthroid] 112 mcg PO DAILY 08/19/20 09/04/20 History amLODIPine [Norvasc] 5 mg PO DAILY 08/19/20 09/04/20 History Atenolol [Tenormin] 100 mg PO DAILY #30 tab 08/21/20 09/04/20 Rx Allergies Allergy/AdvReac Type Severity Reaction Status Date / Time atorvastatin [From Lipitor] Allergy Rash/Hives Verified 09/04/20 11:02 hydralazine Allergy Rash/Hives Verified 09/04/20 11:02 Penicillins Allergy Rash/Hives Verified 09/04/20 11:02 Sulfa (Sulfonamide Allergy Rash/Hives Verified 09/04/20 11:02 Antibiotics) banana AdvReac Vomiting Verified 09/04/20 11:02 codeine AdvReac Vomiting Verified 09/04/20 11:02 hydrocodone [From Vicodin] AdvReac Vomiting Verified 09/04/20 11:02 propoxyphene AdvReac Confusion Verified 09/04/20 11:02 [From [facility]] Physical Exam Vitals: Vital Signs Temp Pulse Pulse Resp BP BP Pulse Ox 09/05/20 07:00 98.2 F 71 16 158/92 97 09/05/20 01:39 97.5 F L 72 18 160/83 99 09/04/20 18:56 97.4 F L 67 16 123/70 97 09/04/20 17:00 98.0 F 66 16 153/83 98 09/04/20 16:22 98 09/04/20 16:20 97.9 F 68 16 148/76 98 09/04/20 13:39 97.6 F 70 18 156/76 98 09/04/20 12:51 97.6 F 71 16 145/82 98 09/04/20 10:57 97.9 F 64 16 153/76 98 09/04/20 10:17 98.8 F 69 18 159/72 96 Intake and Output 09/04/20 09/05/20 09/05/20 22:59 06:59 14:59 Intake Total 300 Balance 300 Intake: Oral 300 Other: Voiding Method Toilet Toilet # Voids 1 1 Results 09/04/20 11:32 09/04/20 11:32 Cardiac Enzymes 09/04/20 09/04/20 09/04/20 Range/Units 11:32 11:32 14:13 AST 26 (14-36) U/L Troponin I <0.012 <0.012 (0.000-0.034) ng/mL 09/04/20 Range/Units 17:02 AST (14-36) U/L Troponin I <0.012 (0.000-0.034) ng/mL Coagulation 09/04/20 Range/Units 11:32 PT 10.5 (9.0-12.0) sec APTT 25.6 (22.0-30.0) sec Lipids 09/04/20 Range/Units 11:32 Triglycerides 153 H (<150) mg/dL Cholesterol 183 (<200) mg/dL HDL Cholesterol 60 (40-60) mg/dL CBC 09/04/20 Range/Units 11:32 WBC 8.6 (3.8-10.6) k/uL RBC 4.80 (3.80-5.40) m/uL Hgb 14.9 (11.4-16.0) gm/dL Hct 43.7 (34.0-46.0) % Plt Count 93 L (150-450) k/uL Comprehensive Metabolic Panel 09/04/20 Range/Units 11:32 Sodium 133 L (137-145) mmol/L Potassium 4.1 (3.5-5.1) mmol/L Chloride 98 (98-107) mmol/L Carbon Dioxide 24 (22-30) mmol/L BUN 9 (7-17) mg/dL Creatinine 0.70 (0.52-1.04) mg/dL Glucose 105 H (74-99) mg/dL Calcium 10.2 (8.4-10.2) mg/dL AST 26 (14-36) U/L ALT 14 (4-34) U/L Alkaline Phosphatase 57 (38-126) U/L Total Protein 7.5 (6.3-8.2) g/dL Albumin 4.3 (3.5-5.0) g/dL Current Medications Generic Name Dose Route Start Last Admin Trade Name Freq PRN Reason Stop Dose Admin Acetaminophen 650 mg 09/04/20 14:01 Acetaminophen Tab 325 Mg Tab PO Q6HR PRN Fever and/ or Pain Al Hydroxide/Mg Hydroxide 30 ml 09/04/20 14:01 Mag Hydrox/Al Hydrox/Simeth 30 Ml Cup PO Q4HR PRN GI Upset Allopurinol 100 mg 09/05/20 09:00 Allopurinol 100 Mg Tab PO DAILY [facility] Amlodipine Besylate 5 mg 09/05/20 09:00 Amlodipine 5 Mg Tab PO DAILY [facility] Aspirin 81 mg 09/05/20 09:00 Aspirin 81 Mg PO DAILY [facility] Atenolol 100 mg 09/05/20 09:00 Atenolol 50 Mg Tab PO DAILY [facility] Heparin Sodium (Porcine) 5,000 unit 09/04/20 21:00 09/04/20 20:30 Heparin Sodium,Porcine 5,000 Unit/Ml 1 Ml Vial SQ 5,000 unit Q12HR CHIKI Administration Levothyroxine Sodium 112 mcg 09/05/20 06:30 09/05/20 05:53 Levothyroxine 112 Mcg Tab PO 112 mcg DAILY@0630 [facility] Administration Lisinopril 40 mg 09/04/20 21:00 09/04/20 20:27 Lisinopril 20 Mg Tab PO 40 mg BID [facility] Administration Magnesium Oxide 400 mg 09/04/20 21:00 09/04/20 20:27 Magnesium Oxide 400 Mg Tab PO 400 mg BID [facility] Administration Multivitamins 1 each 09/05/20 09:00 Multivitamins, Thera 1 Each Tab PO DAILY [facility] Nitroglycerin 0.4 mg 09/04/20 12:53 Nitroglycerin Sl Tabs 0.4 Mg Tab SUBLINGUAL Q5M PRN Chest Pain Pantoprazole Sodium 40 mg 09/05/20 07:30 Pantoprazole 40 Mg Tablet PO AC-BRKFST [facility] Psyllium Hydrophilic Mucilloid 6 gm 09/04/20 21:00 09/04/20 20:27 Psyllium Husk 100% 6 Gm Packet PO 6 gm HS [facility] Administration Intake and Output 09/04/20 09/05/20 09/05/20 22:59 06:59 14:59 Intake Total 300 Balance 300 Intake: Oral 300 Other: Voiding Method Toilet Toilet # Voids 1 1 09/04/20 11:32 09/04/20 11:32
--- NOTE | 2020-09-05 14:00 | P.DS ---
<Rajendra Pedroza - Last Filed: 09/05/20 13:43> Providers Expected date of discharge: 09/05/20 Hospital Course: Discharge Diagnosis: -Atypical noncardiac chest pain -GERD -Chronic venous insufficiency -Essential hypertension -Hyperlipidemia -Hypothyroidism -Chronic thrombocytopenia Hospital Course: Patient is a very pleasant 85-year-old female with a past medical history of hypertension, hyperlipidemia, chronic venous insufficiency, hypothyroidism, and GERD. She presented to the hospital with a chief complaint of burning sensation in her chest radiating into her right arm and right shoulder. Patient stated that she was recently diagnosed with GERD and had been taking Pepcid with reports of improvement in her symptoms. However, she states that the burning sensation/pain she was experiencing in her chest felt similar to her previous bouts of indigestion, but this time the burning sensation was worse as it radiated into her right arm and shoulder resulting in her coming to the hospital for further evaluation and to ensure this pain/burning was not related to her heart. Patient was admitted under our services along with consultation to cardiology. She had a full cardiac workup including troponins 3 sets all negative at < 0.012, an EKG which revealed normal sinus rhythm at 67 bpm with a first-degree AV block with a NJ interval of 212 ms., a chest x-ray negative for acute cardiopulmonary process, and a cardiac stress test with negative results. Labs were drawn with CBC unremarkable, BMP revealing mild hyponatremia with sodium of 133, liver profile revealing a total bilirubin of 1.7 (which is chronic in nature with documented elevation as far back as 2013), and a lipid profile which revealed elevated triglycerides at 153, total cholesterol 183, LDL of 92 and HDL of 60. Medication changes made this hospitalization included discontinuation of Pepcid and patient was started on Protonix with when necessary Maalox, as well as initiation of Crestor elevated triglycerides. Patient was cleared by cardiology for discharge home. Follow up appointments were made for pt with PCP on 09/10/20 and with cardiology in 3 weeks. Physical Examination: Patient seen and examined at bedside, she reports feeling great this morning. She reports that she has not had any chest pain since arrival to the hospital. Patient denies having any other complaints including headache, lightheadedness, dizziness, diaphoresis, palpitations, shortness of breath, or increased dyspnea with exertion. Vital signs reviewed and stable. General: non toxic, no distress, appears at stated age Derm: warm, dry Head: atraumatic, normocephalic, symmetric Eyes: EOMI, no lid lag, anicteric sclera Mouth: no lip lesion, mucus membranes moist Cardiovascular: S1S2 reg, no murmur, positive posterior tibial pulses bilaterally, cap refill < 2 seconds. Lungs: Respirations even, regular, and unlabored on room air. Lungs CTA bilaterally, no rhonchi, no rales, no wheezing, and no accessory muscle use. Abdominal: Soft, nontender to palpation, no guarding, no appreciable organomegaly Ext: no gross muscle atrophy, no edema, no contractures Neuro: CN II-XI grossly intact, no focal neuro deficits Psych: Alert, oriented, appropriate affect A total of 45 minutes of time were spent preparing this complex discharge summary. Patient Condition at Discharge: Fair Plan - Discharge Summary Discharge Rx Participant: No New Discharge Prescriptions: New Rosuvastatin Calcium [Crestor] 10 mg PO DAILY #90 tab Mag Hydrox/Al Hydrox/Simeth [Maalox] 30 ml PO Q4HR PRN 30 Days #1 bottle PRN Reason: Gi Upset amLODIPine [Norvasc] 10 mg PO DAILY 30 Days #30 tab Pantoprazole [Protonix] 40 mg PO AC-BRKFST 30 Days #30 tablet.dr Continue allopurinoL [Zyloprim] 100 mg PO DAILY Ergocalciferol (Vitamin D2) [Vitamin D2] 50,000 unit PO Q30D Multivitamins, Thera [Multivitamin (formulary)] 1 tab PO DAILY Enalapril [Vasotec] 20 mg PO BID Aspirin 81 mg PO DAILY Psyllium Husk 100% [Metamucil Packet] 6 gm PO HS Levothyroxine Sodium [Synthroid] 112 mcg PO DAILY Calcium Carb/Magnesium Hydrox [Rolaids Chewable Tablet] 1 tab PO Q4H PRN PRN Reason: Gi Upset Atenolol [Tenormin] 100 mg PO DAILY #30 tab Discontinued Magnesium Oxide [Mag-Ox] 400 mg PO BID Famotidine [Pepcid] 20 mg PO DAILY PRN PRN Reason: Gi Upset amLODIPine [Norvasc] 5 mg PO DAILY Discharge Medication List Aspirin 81 mg PO DAILY 09/30/17 [History] Enalapril [Vasotec] 20 mg PO BID 09/30/17 [History] Ergocalciferol (Vitamin D2) [Vitamin D2] 50,000 unit PO Q30D 09/30/17 [History] Multivitamins, Thera [Multivitamin (formulary)] 1 tab PO DAILY 09/30/17 [History] Psyllium Husk 100% [Metamucil Packet] 6 gm PO HS 09/30/17 [History] allopurinoL [Zyloprim] 100 mg PO DAILY 09/30/17 [History] Calcium Carb/Magnesium Hydrox [Rolaids Chewable Tablet] 1 tab PO Q4H PRN 08/19/20 [History] Levothyroxine Sodium [Synthroid] 112 mcg PO DAILY 08/19/20 [History] Atenolol [Tenormin] 100 mg PO DAILY #30 tab 08/21/20 [Rx] Mag Hydrox/Al Hydrox/Simeth [Maalox] 30 ml PO Q4HR PRN 30 Days #1 bottle 09/05/20 [Rx] Pantoprazole [Protonix] 40 mg PO AC-BRKFST 30 Days #30 tablet. 09/05/20 [Rx] Rosuvastatin Calcium [Crestor] 10 mg PO DAILY #90 tab 09/05/20 [Rx] amLODIPine [Norvasc] 10 mg PO DAILY 30 Days #30 tab 09/05/20 [Rx] Follow up Appointment(s)/Referral(s): Donny Rod MD [STAFF PHYSICIAN] - 3 Weeks (office to call and schedule appt ) Ayala Carey NPC [Primary Care Provider] - 09/10/20 3:30 pm Patient Instructions/Handouts: Chest Pain (DC) Activity/Diet/Wound Care/Special Instructions: Activity: As tolerated Diet: Heart healthy diet Special Instructions: We have discontinued your Pepcid and started you on Protonix 40 mg every morning before breakfast and you may use Maalox as needed for breakthrough acid reflux. You've also been started on medication for your cholesterol, Crestor. Discharge Disposition: HOME SELF-CARE <Rita De La Rosa - Last Filed: 09/05/20 18:34> Providers Date of admission: 09/04/20 12:52 Attending physician: Lenka Mendoza Consults: 09/04/20 12:53 Consult Physician Urgent Consulting Provider: Shea Jaime Consult Reason/Comments: chest pain Do you want consulting provider notified?: Yes Primary care physician: BERT Hernandez Pending Studies Pending Results: I discussed the care with Rajendra Pedroza NP and reviewed the findings and plan as documented in the note above. I did not staff this patient on this date
--- NOTE | 2020-09-05 15:18 | ECHOS ---
STRESS ECHOCARDIOGRAM LUMASON: N/A Vial INDICATIONS: Chest pain. MEDICATIONS: BASELINE HEART RATE: 82 BASELINE BLOOD PRESSURE: 92/57 MAXIMUM HEART RATE: 119 MAXIMUM BLOOD PRESSURE: 140/54 85% MPHR: 116 100% MPHR: 136 METS: N/A MAXIMUM STAGE REACHED: 3 TOTAL EXERCISE TIME: 10:19 CLINICAL INFORMATION: An 85-year-old female presenting with chest discomfort. Baseline heart rate 82 beats per minute. Baseline blood pressure 90/57 mmHg. Baseline 12-lead ECG shows sinus rhythm with a minimally prolonged SC interval, narrow QRS, normal ST segments. The patient received dobutamine infusion per protocol. Peak heart rate 119 beats per minute. Normal blood pressure response. The blood pressure 140/54 mmHg. There was no ECG evidence for ischemia. No arrhythmias noted. Baseline 2D echo images were suboptimal and therefore Definity contrast was used. There was a stepwise increment in overall LV contractility without development of any wall motion abnormalities. At recovery, regional global LV systolic function remained normal. IMPRESSION: No ECG or echocardiographic evidence for ischemia. MMODL / IJN: [id number] /
== END 2020-09-05 15:35 | disposition home or self-care (01) ==
LOC: EC 10:15 → 6NMEDSUR 12:52
PROVIDERS: ADMIT Internal Medicine; ATTEND Internal Medicine
DX: R07.89 Other chest pain (principal); K21.9 Gastro-esophageal reflux disease without esophagitis; I87.2 Venous insufficiency (chronic) (peripheral); I10 Essential (primary) hypertension; E78.5 Hyperlipidemia, unspecified; E03.9 Hypothyroidism, unspecified; D69.6 Thrombocytopenia, unspecified; R06.09 Other forms of dyspnea; R60.0 Localized edema; Z90.49 Acquired absence of other specified parts of digestive tract; Z98.51 Tubal ligation status; Z98.890 Other specified postprocedural states; I25.10 Atherosclerotic heart disease of native coronary artery without angina pectoris; I44.0 Atrioventricular block, first degree; M06.9 Rheumatoid arthritis, unspecified; H91.90 Unspecified hearing loss, unspecified ear; E87.1 Hypo-osmolality and hyponatremia; E78.1 Pure hyperglyceridemia; Z80.49 Family history of malignant neoplasm of other genital organs; Z79.82 Long term (current) use of aspirin; Z79.890 Hormone replacement therapy; Z79.899 Other long term (current) drug therapy; Z88.5 Allergy status to narcotic agent; Z88.0 Allergy status to penicillin; Z88.2 Allergy status to sulfonamides; Z88.8 Allergy status to other drugs, medicaments and biological substances; Z91.018 Allergy to other foods
CPT/HCPCS: 96372 ×2; 99285; 36415; 94760; 93005; 80061; 80053; 83735; 84484; 85025; 85610; 85730; 87635; 71046; G0378 ×2; C8930; J1250; J1644 ×2; Q9950; 93351

== ENCOUNTER 2020-12-28 23:02 | Emergency (ER) | payer MEDICARE, BC ==
[2020-12-28] MEDS ORDERED: MORPHINE SULFATE 4 MG/ML SYRINGE IV STA (23:46)
[2020-12-28] MEDS ORDERED: ONDANSETRON 4 MG/2 ML VIAL IVP STA (23:46)
[2020-12-28 23:53] VITALS: TEMP 98.3
[2020-12-29 00:02] LABS: Basophils % (A) 0 %; Eosinophils # (A) 0.1 k/uL (0-0.7); Eosinophils % (A) 1 %; HCT 43.5 % (34.0-46.0); HGB 14.6 gm/dL (11.4-16.0); Lymphocytes # (A) 1.8 k/uL (1.0-4.8); Lymphocytes % (A) 14 %; MCHC 33.6 g/dL (31.0-37.0); MCV 89.4 fL (80.0-100.0); Monocytes # (A) 0.6 k/uL (0-1.0); Monocytes % (A) 4 %; Neutrophils # (A) 10.1 k/uL (1.3-7.7); Neutrophils % (A) 79 %; RBC 4.87 m/uL (3.80-5.40); RDW 13.8 % (11.5-15.5); WBC 12.7 k/uL (3.8-10.6)
[2020-12-29 00:03] LABS: Appearance,Urine Clear (Clear); Bilirubin,Urine Negative (Negative); Blood,Urine Negative (Negative); Color,Urine Light Yellow; Glucose,Urine (UA) Negative (Negative); Ketones,Urine Negative (Negative); Leukocyte Esterase,Urine Negative (Negative); Nitrite,Urine Negative (Negative); PH, Urine 6.5 (5.0-8.0); Protein,Urine Trace (Negative); Specific Gravity,Urine 1.009 (1.001-1.035); Urobilinogen,Urine <2.0 mg/dL (<2.0)
[2020-12-29 00:21] LABS: Calcium 10.3 mg/dL (8.4-10.2); Potassium 3.6 mmol/L (3.5-5.1); Total Bilirubin 1.8 mg/dL (0.2-1.3); Total Protein 8.2 g/dL (6.3-8.2)
--- NOTE | 2020-12-29 00:44 | CT ---
EXAMINATION TYPE: CT abdomen pelvis wo con DATE OF EXAM: 12/29/2020 COMPARISON: 11/03/2009 HISTORY: left flank pain x 2 [address] prior on PACS [address] DLP: 506.9 mGycm Automated exposure control for dose reduction was used. Images obtained from the diaphragm to the floor the pelvis without contrast. There are bilateral pleural effusions. Fluid more on the left side. There is no pericardial effusion. Thoracic aorta and abdominal aorta are atheromatous. There are clips from cholecystectomy. Liver idris ws no focal defect. Spleen is intact. There is no evidence of pancreatic mass. The stomach is intact. There is no adrenal mass. Kidneys have normal size. There is no hydronephrosis. Ureters are not dilat ed. Appendix is posterior and appears normal. Bladder distends smoothly. There is no inguinal hernia. There is no free fluid in the pelvis. There are a few sigmoid diverticula. I see no diverticulitis. There is a large mass which has soft tissue density and some fluid density in the anterior mid abdome n. This extends from the uterine fundus up to the L3 level and measures 12.8 x 14.6 x 9.2 cm. The unique gin of this mass is not clear. There is multilevel spondylotic changes in the lumbar spine with vacuum disc and spur formation. The bony pelvis is intact. There is hypertrophic facet arthropathy in the lower lumbar spine with multilevel spinal stenosis. Th e hip joints are intact. There is some posterior 3 changes in both hip joints. IMPRESSION: There is a large mass in the abdomen. The origin of this mass is not clear. This could be ovarian elvia or. Unusual hematoma also possible. Colonic diverticulosis without diverticulitis. Small bilateral pleural effusions appear new compared to old exam. Abdominal mass is new compared to old exam.
[2020-12-29 00:51] LABS: Platelet Count 81 k/uL (150-450)
[2020-12-29 01:08] VITALS: BP 139/65; PULSE 74; RESP 16
--- NOTE | 2020-12-29 01:56 | ED ---
Abdominal Pain HPI - General Chief Complaint: Abdominal Pain Stated Complaint: Flank Pain Time Seen by Provider: 12/28/20 23:16 Source: patient Mode of arrival: wheelchair Limitations: no limitations - History of Present Illness Initial Comments: This patient is an 85-year-old woman who complains of left lower abdominal pain that is been going on since Thursday but became much worse tonight. She states that it also feels like she needs to have a bowel movement. She has some associated nausea and vomiting over the past couple of hours. She was having similar symptoms in August but they resolve spontaneously. MD Complaint: abdominal pain Onset/Timin -: days(s) Location: LLQ Radiation: none Migration to: no migration Severity: moderate Quality: aching Consistency: constant Improves With: nothing Worsens With: other (Palpation) Associated Symptoms: nausea, vomiting, constipation - Related Data Home Medications Medication Instructions Recorded Confirmed Aspirin 81 mg PO DAILY 09/30/17 09/04/20 Enalapril [Vasotec] 20 mg PO BID 09/30/17 09/04/20 Ergocalciferol (Vitamin D2) 50,000 unit PO Q30D 09/30/17 09/04/20 [Vitamin D2] Multivitamins, Thera [Multivitamin 1 tab PO DAILY 09/30/17 09/04/20 (formulary)] Psyllium Husk 100% [Metamucil 6 gm PO HS 09/30/17 09/04/20 Packet] allopurinoL [Zyloprim] 100 mg PO DAILY 09/30/17 09/04/20 Calcium Carb/Magnesium Hydrox 1 tab PO Q4H PRN 08/19/20 09/04/20 [Rolaids Chewable Tablet] Levothyroxine Sodium [Synthroid] 112 mcg PO DAILY 08/19/20 09/04/20 Previous Rx's Medication Instructions Recorded Atenolol [Tenormin] 100 mg PO DAILY #30 tab 08/21/20 Mag Hydrox/Al Hydrox/Simeth 30 ml PO Q4HR PRN 30 Days #1 bottle 09/05/20 [Maalox] Pantoprazole [Protonix] 40 mg PO AC-BRKFST 30 Days #30 09/05/20 tablet. Rosuvastatin Calcium [Crestor] 10 mg PO DAILY #90 tab 09/05/20 amLODIPine [Norvasc] 10 mg PO DAILY 30 Days #30 tab 09/05/20 traMADol HCl [Ultram] 50 mg PO Q6H PRN #20 tab 12/29/20 Allergies Allergy/AdvReac Type Severity Reaction Status Date / Time atorvastatin [From Lipitor] Allergy Rash/Hives Verified 12/28/20 23:06 hydralazine Allergy Rash/Hives Verified 12/28/20 23:06 Penicillins Allergy Rash/Hives Verified 12/28/20 23:06 Sulfa (Sulfonamide Allergy Rash/Hives Verified 12/28/20 23:06 Antibiotics) banana AdvReac Vomiting Verified 12/28/20 23:06 codeine AdvReac Vomiting Verified 12/28/20 23:06 hydrocodone [From Vicodin] AdvReac Vomiting Verified 12/28/20 23:06 propoxyphene AdvReac Confusion Verified 12/28/20 23:06 [From Darvocet-N] Review of Systems ROS Statement: Those systems with pertinent positive or pertinent negative responses have been documented in the HPI. ROS Other: All systems not noted in ROS Statement are negative. Constitutional: Denies: fever, chills Respiratory: Denies: cough, dyspnea Cardiovascular: Denies: chest pain, palpitations Gastrointestinal: Reports: abdominal pain, nausea, vomiting, constipation. Denies: diarrhea, hematemesis, melena, hematochezia Genitourinary: Denies: dysuria, hematuria Musculoskeletal: Denies: back pain Skin: Denies: rash Neurological: Denies: headache, weakness, numbness Past Medical History Past Medical History: GERD/Reflux, Hearing Disorder / Deafness, Hyperlipidemia, Hypertension, Osteoarthritis (OA), Rheumatoid Arthritis (RA), Thyroid Disorder, Vascular Disorder Additional Past Medical History / Comment(s): Pt recently admitted to [facility] on 08/19/20 with hyponatremia. Other hx: Exertional dyspnea, chronic venous insufficiency, hypothyroid, diverticular disease, external hemmorrhoid/occa sionally bleeds, vertigo in AM, [place] bilaterally with L ear worse, tinnitis bilaterally with L ear worse, lower leg edema in the evening/gone in AM. History of Any Multi-Drug Resistant Organisms: None Reported Past Surgical History: Back Surgery, Cholecystectomy, Joint Replacement, Orthopedic Surgery, Tubal Ligation Additional Past Surgical History / Comment(s): Bilateral total knee arthroplasties, L shoulder rotator cuff, L ankle ORIF, low back surgery, bilateral carpal tunnel releases, bilateral cataract removal, colonoscopy. Past Anesthesia/Blood Transfusion Reactions: Postoperative Nausea & Vomiting (PONV) Additional Past Anesthesia/Blood Transfusion Reaction / Comment(s): Pt has clausterphobia. Past Psychological History: No Psychological Hx Reported Smoking Status: Never smoker Past Alcohol Use History: Rare Past Drug Use History: None Reported - Past Family History Father Family Medical History: Cancer, Rheumatoid Arthritis (RA) Additional Family Medical History / Comment(s): Prostate cancer Mother Family Medical History: Cancer, Thyroid Disorder Additional Family Medical History / Comment(s): Cervical cancer. General Exam Limitations: no limitations General appearance: alert, in no apparent distress Head exam: Present: atraumatic, normocephalic Eye exam: Present: normal appearance. Absent: scleral icterus, conjunctival injection Neck exam: Present: normal inspection, full ROM Respiratory exam: Present: normal lung sounds bilaterally. Absent: respiratory distress, wheezes, rales, rhonchi, stridor Cardiovascular Exam: Present: regular rate, normal rhythm, normal heart sounds. Absent: systolic murmur, diastolic murmur, rubs, gallop GI/Abdominal exam: Present: soft, tenderness, mass. Absent: distended, guarding, rebound, rigid, pulsatile mass, hernia Extremities exam: Present: normal inspection, normal capillary refill. Absent: pedal edema, calf tenderness Back exam: Present: normal inspection. Absent: CVA tenderness (R), CVA tend erness (L) Neurological exam: Present: alert Skin exam: Present: warm, dry, intact, normal color. Absent: rash Course Vital Signs 12/28/20 12/29/20 23:52 01:06 Temperature 98.3 F Pulse Rate 71 74 Respiratory 18 16 Rate Blood Pressure 152/63 139/65 O2 Sat by Pulse 96 94 L Oximetry Medical Decision Making - Medical Decision Making Patient is a 85-year-old woman with abdominal pain found to have abdominal mass. Discussed admission with the patient, but this point she would rather follow up for this as outpatient. She does know that she needs close follow-up to determine whether this represents malignancy. She'll be provided analgesia and will return should pain worsen or any new symptoms develop. - Lab Data Result diagrams: 12/28/20 23:16 12/28/20 23:16 Lab Results 12/28/20 12/28/20 12/28/20 Range/Units 23:16 23:16 23:16 WBC 12.7 H (3.8-10.6) k/uL RBC 4.87 (3.80-5.40) m/uL Hgb 14.6 (11.4-16.0) gm/dL Hct 43.5 (34.0-46.0) % MCV 89.4 (80.0-100.0) fL MCH 30.0 (25.0-35.0) pg MCHC 33.6 (31.0-37.0) g/dL RDW 13.8 (11.5-15.5) % Plt Count 81 L (150-450) k/uL MPV 9.0 Neutrophils % 79 % Lymphocytes % 14 % Monocytes % 4 % Eosinophils % 1 % Basophils % 0 % Neutrophils # 10.1 H (1.3-7.7) k/uL Lymphocytes # 1.8 (1.0-4.8) k/uL Monocytes # 0.6 (0-1.0) k/uL Eosinophils # 0.1 (0-0.7) k/uL Basophils # 0.0 (0-0.2) k/uL Manual Slide Review Performed Sodium 138 (137-145) mmol/L Potassium 3.6 (3.5-5.1) mmol/L Chloride 101 (98-107) mmol/L Carbon Dioxide 24 (22-30) mmol/L Anion Gap 13 mmol/L BUN 12 (7-17) mg/dL Creatinine 0.72 (0.52-1.04) mg/dL Est GFR (CKD-EPI)AfAm 90 (>60 ml/min/1.73 sqM) Est GFR (CKD-EPI)NonAf 78 (>60 ml/min/1.73 sqM) Glucose 131 H (74-99) mg/dL Calcium 10.3 H (8.4-10.2) mg/dL Total Bilirubin 1.8 H (0.2-1.3) mg/dL AST 34 (14-36) U/L ALT 15 (4-34) U/L Alkaline Phosphatase 83 (38-126) U/L Total Protein 8.2 (6.3-8.2) g/dL Albumin 5.0 (3.5-5.0) g/dL Amylase 99 (30-110) U/L Lipase 158 (23-300) U/L Urine Color Light Yellow Urine Appearance Clear (Clear) Urine pH 6.5 (5.0-8.0) Ur Specific [place] 1.009 (1.001-1.035) Urine Protein Trace H (Negative) Urine Glucose (UA) Negative (Negative) Urine Ketones Negative (Negative) Urine Blood Negative (Negative) Urine Nitrite Negative (Negative) Urine Bilirubin Negative (Negative) Urine Urobilinogen <2.0 (<2.0) mg/dL Ur Leukocyte Esterase Negative (Negative) Disposition Clinical Impression: Abdominal pain, Abdominal mass, left lower quadrant Disposition: HOME SELF-CARE Condition: Fair Instructions (If sedation given, give patient instructions): Abdominal Pain (ED) Additional Instructions: As we discussed, follow-up to have further evaluation of the abdominal mass. Return here if there is any problem with additional pain or the follow-up plan. Prescriptions: traMADol HCl [Ultram] 50 mg PO Q6H PRN #20 tab PRN Reason: Pain Is patient prescribed a controlled substance at d/c from ED?: No Referrals: Rolando Yañez MD [Primary Care Provider] - 1-2 days
== END 2020-12-29 02:08 | disposition home or self-care (01) ==
LOC: EC 23:02
DX: R10.32 Left lower quadrant pain (principal); R19.00 Intra-abdominal and pelvic swelling, mass and lump, unspecified site; K59.00 Constipation, unspecified; R11.2 Nausea with vomiting, unspecified; E78.5 Hyperlipidemia, unspecified; I10 Essential (primary) hypertension; E03.9 Hypothyroidism, unspecified; I87.2 Venous insufficiency (chronic) (peripheral); M06.9 Rheumatoid arthritis, unspecified; K21.9 Gastro-esophageal reflux disease without esophagitis; M19.90 Unspecified osteoarthritis, unspecified site; Z79.82 Long term (current) use of aspirin; Z79.890 Hormone replacement therapy; Z88.0 Allergy status to penicillin
CPT/HCPCS: 36415; 80053; 82150; 83690; 85025; 81003; 74176; 99284; 96374; 96375; J2270; J2405

== ENCOUNTER → 2021-01-24 | Outpatient (CLI) | payer MEDICARE, BC ==
--- NOTE | 2021-01-28 14:37 | MM ---
Reason for exam: screening (asymptomatic). Last mammogram was performed 1 year and 10 months ago. History: Patient is postmenopausal. Family history of breast cancer in maternal cousin and breast cancer in maternal aunt. Took hormonal contraceptives for 6 months. Physical Findings: A clinical breast exam by your physician is recommended on an annual basis and results should be correlated with mammographic findings. MG 3D Screening Mammo W/Cad Bilateral CC, MLO, and XCCL view(s) were taken. Prior study comparison: March 14, 2019, bilateral MG 3d screening mammo w/cad. February 23, 2018, bilateral MG 3d screening mammo w/cad. There are scattered fibroglandular densities. No significant changes when compared with prior studies. ASSESSMENT: Benign, BI-RAD 2 RECOMMENDATION: Routine screening mammogram of both breasts in 1 year.
== END | disposition home or self-care (01) ==
LOC: RADMAMWWP 13:10
PROVIDERS: ATTEND Internal Medicine
DX: Z12.31 Encounter for screening mammogram for malignant neoplasm of breast (principal); Z78.0 Asymptomatic menopausal state; Z80.3 Family history of malignant neoplasm of breast; Z79.3 Long term (current) use of hormonal contraceptives
CPT/HCPCS: 77063; 77067

== ENCOUNTER 2021-09-07 06:34 | Emergency (ER) | payer MEDICARE, BC ==
[2021-09-07 06:45] VITALS: BP 150/74; PULSE 73; RESP 16; TEMP 98.4
[2021-09-07] MEDS ORDERED: SODIUM CHLORIDE 0.9% 1,000 ML IV STA (07:02)
[2021-09-07] MEDS ORDERED: ONDANSETRON 4 MG/2 ML VIAL IVP STA (07:02)
[2021-09-07 07:20] LABS: Basophils % (A) 0 %; Eosinophils # (A) 0.2 k/uL (0-0.7); Eosinophils % (A) 1 %; HCT 42.5 % (34.0-46.0); HGB 14.4 gm/dL (11.4-16.0); Lymphocytes # (A) 0.7 k/uL (1.0-4.8); Lymphocytes % (A) 4 %; MCH 31.4 pg (25.0-35.0); MCHC 33.9 g/dL (31.0-37.0); MCV 92.7 fL (80.0-100.0); Mean Platelet Volume 8.1; Monocytes # (A) 0.7 k/uL (0-1.0); Monocytes % (A) 4 %; Neutrophils # (A) 15.7 k/uL (1.3-7.7); Neutrophils % (A) 90 %; Platelet Count 123 k/uL (150-450); RBC 4.58 m/uL (3.80-5.40); RDW 13.3 % (11.5-15.5); WBC 17.4 k/uL (3.8-10.6)
[2021-09-07 07:28] LABS: Albumin 4.6 g/dL (3.5-5.0); Calcium 10.2 mg/dL (8.4-10.2); Potassium 3.4 mmol/L (3.5-5.1); Total Bilirubin 1.7 mg/dL (0.2-1.3); Total Protein 8.3 g/dL (6.3-8.2)
--- NOTE | 2021-09-07 08:30 | CT ---
EXAMINATION TYPE: CT abdomen pelvis w con DATE OF EXAM: 09/07/2021 HISTORY: Abdominal pain CT DLP: 913.9mGycm Automated Exposure Control for Dose Reduction was Utilized. CONTRAST: CT scan of the abdomen and pelvis is performed with IV Contrast, patient injected with 100 ml mL of I sovue 300. No 3-D reconstruction. COMPARISON: 12/29/2020 FINDINGS: LUNG BASES: Minimal atelectasis. 5 mm nodule in the anterior aspect of the right upper lobe. No effusion seen. No focal airspace opacity. INCLUDED CARDIAC STRUCTURES: Valvular and coronary arterial calcifications seen. LIVER: No significant abnormality is appreciated. GALLBLADDER : Surgically removed BILIARY TREE: No abnormal biliary tree dilation. PANCREAS: No significant abnormality is seen. SPLEEN: No significant abnormality is seen. ADRENALS: No significant abnormality is seen. KIDNEYS AND URETERS: No significant abnormality is seen. URINARY BLADDER: Partially distended, unremarkable as seen. GASTROINTESTINAL TRACT: Questionable duodenal diverticulum. No evidence of acute appendicitis. Pancol onic diverticulosis, no findings of acute complicated diverticulitis. HERNIAS: No significant abnormality is seen. UTERUS/ADNEXA: Uterus is not seen. No abnormal adnexal masses. PERITONEUM/MESENTRY: No pneumoperitoneum or ascites. Previously seen large abdominal lesion is not se en at this study. LYMPH NODES: No enlarged retroperitoneal or pelvic lymph nodes are appreciated. MAJOR VASCULAR STRUCTURES: Nonaneurysmal aorta. Diffuse atherosclerotic calcifications and soft plaqu es of the intrathoracic aorta and abdominal aorta. Single IVC seen on the right. OSSEOUS STRUCTURES: Moderate severe degenerative changes are seen in the included spine. No compressi on fracture deformity seen. Slight posterior translation of L5-S1. No acute osseous abnormality. Bila teral hip joint osteoarthrosis. Soft tissue: Generalized muscular atrophy. IMPRESSION: 1. No evidence for acute abdominal or pelvic processes. 2. A 5 mm nodule in the anterior aspect of the right upper lobe, consider obtaining nonurgent CT of t he chest. 3. Diffuse atherosclerotic changes as described above. 4. Previously seen large abdominal mass has been removed in the interval. 5. Pancolonic diverticulosis, no evidence for acute diverticulitis, no significant change in the inte rval.
[2021-09-07 08:31] LABS: Appearance,Urine Clear (Clear); Bilirubin,Urine Negative (Negative); Blood,Urine Negative (Negative); Color,Urine Light Yellow; Glucose,Urine (UA) Negative (Negative); Ketones,Urine Negative (Negative); Leukocyte Esterase,Urine Trace (Negative); Mucus,Urine Rare /hpf; Nitrite,Urine Negative (Negative); Protein,Urine Negative (Negative); RBC,Urine 1 /hpf (0-5); Specific Gravity,Urine 1.027 (1.001-1.035); Squamous Epithelial Cell,Urine 1 /hpf (0-4); Urobilinogen,Urine <2.0 mg/dL (<2.0); WBC,Urine 6 /hpf (0-5)
--- NOTE | 2021-09-07 08:44 | ED ---
General Adult HPI - General Chief complaint: Nausea/Vomiting/Diarrhea Stated complaint: Abd Pain Time Seen by Provider: 09/07/21 06:46 Source: patient, family, RN notes reviewed Mode of arrival: ambulatory Limitations: no limitations - History of Present Illness Initial comments: 86-year-old female presents emergency from chief complaint of nausea vomiting. Patient states "this morning around 435 started having episodes of vomiting. States she is slightly nauseous time of feels much better. She denies any localized abdominal pain. She is concerned as she is scheduled for CT of her abdomen pelvis secondary to ventral hernia. Patient states that last January she has a large mass removed in which she had a total hysterectomy at that time. Patient states is benign mass she has no complaints of diarrhea she had normal bowel movement this morning. Chills no chest pain no headache or dizziness no other associated complaints. - Related Data Home Medications Medication Instructions Recorded Confirmed Aspirin 81 mg PO DAILY 09/30/17 09/04/20 Enalapril [Vasotec] 20 mg PO BID 09/30/17 09/04/20 Ergocalciferol (Vitamin D2) 50,000 unit PO Q30D 09/30/17 09/04/20 [Vitamin D2] Multivitamins, Thera [Multivitamin 1 tab PO DAILY 09/30/17 09/04/20 (formulary)] Psyllium Husk 100% [Metamucil 6 gm PO HS 09/30/17 09/04/20 Packet] allopurinoL [Zyloprim] 100 mg PO DAILY 09/30/17 09/04/20 Calcium Carb/Magnesium Hydrox 1 tab PO Q4H PRN 08/19/20 09/04/20 [Rolaids Chewable Tablet] Levothyroxine Sodium [Synthroid] 112 mcg PO DAILY 08/19/20 09/04/20 Previous Rx's Medication Instructions Recorded Atenolol [Tenormin] 100 mg PO DAILY #30 tab 08/21/20 Mag Hydrox/Al Hydrox/Simeth 30 ml PO Q4HR PRN 30 Days #1 bottle 09/05/20 [Maalox] Pantoprazole [Protonix] 40 mg PO AC-BRKFST 30 Days #30 09/05/20 tablet. Rosuvastatin Calcium [Crestor] 10 mg PO DAILY #90 tab 09/05/20 amLODIPine [Norvasc] 10 mg PO DAILY 30 Days #30 tab 09/05/20 traMADol HCl [Ultram] 50 mg PO Q6H PRN #20 tab 12/29/20 Ondansetron Odt [Zofran Odt] 4 mg PO Q8HR PRN #10 tab 09/07/21 Allergies Allergy/AdvReac Type Severity Reaction Status Date / Time atorvastatin [From Lipitor] Allergy Rash/Hives Verified 09/07/21 06:42 hydralazine Allergy Rash/Hives Verified 09/07/21 06:42 Penicillins Allergy Rash/Hives Verified 09/07/21 06:42 Sulfa (Sulfonamide Allergy Rash/Hives Verified 09/07/21 06:42 Antibiotics) banana AdvReac Vomiting Verified 09/07/21 06:42 codeine AdvReac Vomiting Verified 09/07/21 06:42 hydrocodone [From Vicodin] AdvReac Vomiting Verified 09/07/21 06:42 propoxyphene AdvReac Confusion Verified 09/07/21 06:42 [From Darvocet-N] Review of Systems ROS Statement: Those systems with pertinent positive or pertinent negative responses have been documented in the HPI. ROS Other: All systems not noted in ROS Statement are negative. Past Medical History Past Medical History: GERD/Reflux, Hearing Disorder / Deafness, Hyperlipidemia, Hypertension, Osteoarthritis (OA), Rheumatoid Arthritis (RA), Thyroid Disorder, Vascular Disorder Additional Past Medical History / Comment(s): Pt recently admitted to [facility] on 08/19/20 with hyponatremia. Other hx: Exertional dyspnea, chronic venous insufficiency, hypothyroid, diverticular disease, external hemmorrhoid /occasionally bleeds, vertigo in AM, CACHIL DEHE bilaterally with L ear worse, tinnitis bilaterally with L ear worse, lower leg edema in the evening/gone in AM. History of Any Multi-Drug Resistant Organisms: None Reported Past Surgical History: Back Surgery, Cholecystectomy, Hysterectomy, Joint Replacement, Orthopedic Surgery, Tubal Ligation Additional Past Surgical History / Comment(s): Bilateral total knee arthroplasties, L shoulder rotator cuff, L ankle ORIF, low back surgery, bilateral carpal tunnel releases, bilateral cataract removal, colonoscopy. Past Anesthesia/Blood Transfusion Reactions: Postoperative Nausea & Vomiting (PONV) Additional Past Anesthesia/Blood Transfusion Reaction / Comment(s): Pt has clausterphobia. Past Psychological History: No Psychological Hx Reported Smoking Status: Never smoker Past Alcohol Use History: Rare Past Drug Use History: None Reported - Past Family History Father Family Medical History: Cancer, Rheumatoid Arthritis (RA) Additional Family Medical History / Comment(s): Prostate cancer Mother Family Medical History: Cancer, Thyroid Disorder Additional Family Medical History / Comment(s): Cervical cancer. General Exam Limitations: no limitations General appearance: alert, in no apparent distress Head exam: Present: atraumatic, normocephalic, normal inspection Eye exam: Present: normal appearance, PERRL, EOMI. Absent: scleral icterus, conjunctival injection, periorbital swelling ENT exam: Present: normal exam, normal oropharynx, mucous membranes moist Neck exam: Present: normal inspection, full ROM. Absent: tenderness, meningismus, lymphadenopathy Respiratory exam: Present: normal lung sounds bilaterally. Absent: respiratory distress, wheezes, rales, rhonchi, stridor Cardiovascular Exam: Present: regular rate, normal rhythm, normal heart sounds. Absent: systolic murmur, diastolic murmur, rubs, gallop, clicks GI/Abdominal exam: Present: soft, normal bowel sounds. Absent: distended, tenderness, guarding, rebound, rigid Back exam: Absent: CVA tenderness (R), CVA tenderness (L) Neurological exam: Present: alert Course Vital Signs 09/07/21 06:42 Temperature 98.4 F Pulse Rate 73 Respiratory 16 Rate Blood Pressure 150/74 O2 Sat by Pulse 99 Oximetry Medical Decision Making - Medical Decision Making 86-year-old presented for nausea vomiting. Patient did have. Labs and CT. CT didn't reveal any significant acute findings there is some chronic changes. Patient states that she has no abdominal pain nausea is resolved. Patient was updated and results will be discharged in stable condition return parameters were discussed. - Lab Data Result diagrams: 09/07/21 07:10 09/07/21 07:10 Lab Results 09/07/21 09/07/21 09/07/21 Range/Units 07:10 07:10 07:10 WBC 17.4 H (3.8-10.6) k/uL RBC 4.58 (3.80-5.40) m/uL Hgb 14.4 (11.4-16.0) gm/dL Hct 42.5 (34.0-46.0) % MCV 92.7 (80.0-100.0) fL MCH 31.4 (25.0-35.0) pg MCHC 33.9 (31.0-37.0) g/dL RDW 13.3 (11.5-15.5) % Plt Count 123 L (150-450) k/uL MPV 8.1 Neutrophils % 90 % Lymphocytes % 4 % Monocytes % 4 % Eosinophils % 1 % Basophils % 0 % Neutrophils # 15.7 H (1.3-7.7) k/uL Lymphocytes # 0.7 L (1.0-4.8) k/uL Monocytes # 0.7 (0-1.0) k/uL Eosinophils # 0.2 (0-0.7) k/uL Basophils # 0.0 (0-0.2) k/uL Sodium 141 (137-145) mmol/L Potassium 3.4 L (3.5-5.1) mmol/L Chloride 106 (98-107) mmol/L Carbon Dioxide 27 (22-30) mmol/L Anion Gap 8 mmol/L BUN 18 H (7-17) mg/dL Creatinine 0.83 (0.52-1.04) mg/dL Est GFR (CKD-EPI)AfAm 75 (>60 ml/min/1.73 sqM) Est GFR (CKD-EPI)NonAf 65 (>60 ml/min/1.73 sqM) Glucose 133 H (74-99) mg/dL Calcium 10.2 (8.4-10.2) mg/dL Total Bilirubin 1.7 H (0.2-1.3) mg/dL AST 34 (14-36) U/L ALT 21 (4-34) U/L Alkaline Phosphatase 91 (38-126) U/L Total Protein 8.3 H (6.3-8.2) g/dL Albumin 4.6 (3.5-5.0) g/dL Amylase 89 (30-110) U/L Lipase 158 (23-300) U/L Urine Color Light Yellow Urine Appearance Clear (Clear) Urine pH 7.0 (5.0-8.0) Ur Specific [place] 1.027 (1.001-1.035) Urine Protein Negative (Negative) Urine Glucose (UA) Negative (Negative) Urine Ketones Negative (Negative) Urine Blood Negative (Negative) Urine Nitrite Negative (Negative) Urine Bilirubin Negative (Negative) Urine Urobilinogen <2.0 (<2.0) mg/dL Ur Leukocyte Esterase Trace H (Negative) Urine RBC 1 (0-5) /hpf Urine WBC 6 H (0-5) /hpf Ur Squamous Epith Cells 1 (0-4) /hpf Urine Mucus Rare H (None) /hpf Disposition Clinical Impression: Nausea & vomiting Disposition: HOME SELF-CARE Condition: Stable Instructions (If sedation given, give patient instructions): Acute Nausea and Vomiting (ED) Additional Instructions: Please return to the Emergency Department if symptoms worsen or any other concerns. Prescriptions: Ondansetron Odt [Zofran Odt] 4 mg PO Q8HR PRN #10 tab PRN Reason: Nausea Is patient prescribed a controlled substance at d/c from ED?: No Referrals: Rolando Yañez MD [Primary Care Provider] - 1-2 days Time of Disposition: 08:57
== END 2021-09-07 09:27 | disposition home or self-care (01) ==
LOC: EC 06:34
DX: R11.2 Nausea with vomiting, unspecified (principal); I10 Essential (primary) hypertension; E78.5 Hyperlipidemia, unspecified; K21.9 Gastro-esophageal reflux disease without esophagitis; M06.39 Rheumatoid nodule, multiple sites; E03.9 Hypothyroidism, unspecified; Z79.82 Long term (current) use of aspirin; Z79.890 Hormone replacement therapy; Z79.899 Other long term (current) drug therapy
CPT/HCPCS: 36415; 80053; 82150; 83690; 85025; 81001; 74177; 99284; 96374; 96361; J2405; Q9967

== ENCOUNTER → 2021-09-13 | Outpatient (CLI) | payer MEDICARE, BC ==
--- NOTE | 2021-09-15 22:41 | CT ---
EXAMINATION TYPE: CT chest wo con DATE OF EXAM: 09/13/2021 INDICATION: Solitary pulmonary nodule, abnormal imaging results from 09/[address] DLP: 233.50 mGy.cm Automated Exposure Control for Dose Reduction was Utilized. TECHNIQUE AND CONTRAST: Multiplanar CT scan of the chest is performed without IV contrast administration. COMPARISON: CT abdomen dated 09/07/2021. No previous CT chest. FINDINGS: Stable slightly irregular pleural-based nodule measuring 4 mm at the anterior aspect of the right mid dle lobe. The more superior and lateral calcified granuloma is also stable measuring 3 mm. 7 mm nodul e is seen at the medial aspect of the right upper lobe. No other definite lung nodule identified. Minimal fibrotic changes in the left lung apex. Patent trachea and main bronchi. No pleural or perica rdial effusion. Cardiomegaly with coronary arterial atherosclerotic calcifications and extensive marely rial atherosclerotic calcifications, for correlation with echocardiographic results. The pulmonary tr unk measures up to 3.6 cm which may suggest pulmonary hypertension. The ascending aorta measures up t o 4 cm. Dilated descending thoracic aorta measuring up to 3.7 cm. 8mm precarinal lymph node. No pathologically enlarged lymph nodes in the chest. Previous cholecystect nicol. Atrophic pancreas. Second part of the duodenum diverticulum. Degenerative changes of the right g lenohumeral articulation as well as sternoclavicular joints more on right side. Severe degenerative c hanges of the mid thoracic spine. No aggressive bone lesion. IMPRESSION: Indeterminate 7 mm right upper lobe nodule as detailed above. If the patient is known for a primary c ancer, this could represent a solitary metastasis. Recommend further PET scan assessment. Smaller pleural-based nodule in the right middle lobe, nonspecific. No other definite lung lesion or lymphadenopathy seen in the chest. Other incidental findings as detailed above.
== END | disposition home or self-care (01) ==
LOC: RADCTMAIN 15:42
PROVIDERS: ATTEND Internal Medicine
DX: R91.8 Other nonspecific abnormal finding of lung field (principal); R59.0 Localized enlarged lymph nodes
CPT/HCPCS: 71250

== ENCOUNTER → 2022-02-06 | Outpatient (CLI) | payer MEDICARE, BC ==
--- NOTE | 2022-02-07 09:36 | BD ---
EXAMINATION TYPE: Axial Bone Density DATE OF EXAM: 02/06/2022 COMPARISON: NONE CLINICAL HISTORY: 86 years year old Female. ICD-10 CODE: Z78.0 SCREENING FOR OSTEOPOROSIS Height: 61 Weight: 172 FRAX RISK QUESTIONS: Alcohol (3 or more units per day): NO Family History (Parent hip fracture): NO Glucocorticoids (More than 3mos): NO History of Fracture in Adulthood: YES, ANKLE, SHOULDER, Secondary Osteoporosis: 1. Type 1 Diabetes: NO 2. Hyperthyroidism: NO 3. Menopause before 45: NO 4. Malnutrition: NO 5. Chronic liver disease: NO Rheumatoid Arthritis: NO Current Tobacco Use: NO RISK FACTORS HISTORY OF: Hip Fracture (Right/Left): NO Spine Fracture: NO History of Wrist Fracture: NO Surgery to Spine/Hip(right/left)/Wrist (right/left): RUPTURED DISC SURGERY 1954, CARPAL TUNNEL BILAT 2009 Family History of Osteoporosis: NO Active: NO Diet low in dairy products/other sources of calcium: NO Postmenopausal woman: YES Take estrogen and/or progesterone medications: NO Lost more than 2 inches in height since high school: NO Frequent falls: NO Poor Health: NO Hyperparathyroidism: NO Adrenal Insufficiency: NO MEDICATIONS: Prednisone or other steroids: NO Thyroid Medications: SYNTHROID PAST 55 YEARS Osteoporosis Medications: NO Additional Medications: ATENOLOL, ROSUVASTATIN, MULTI VIT., TUMS, OMEGA 3, Additional History: EXAM MEASUREMENTS: Bone mineral density about the R hip (g/cm2): 1.139 Bone mineral density about the L hip (g/cm2): 1.109 T Score values are as follows: -----R Neck: 0.7 -----L Neck: 0.5 -----R Total: 1.0 -----L Total: 0.2 Bone mineral density has: DECREASED 7.1 % since study of: 08/25/2012 FRAX%s: The graph provided illustrates a 10.1% chance for a major osteoporotic fx and a 1.3% chance f or the hips probability for fx in 10 years time. IMPRESSION: Normal (Values between +1 and -1 indicate normal bone mass). Consider repeating this study in 5 year s or sooner if there is some new clinical indication. NOTE: T-SCORE=SD OF THE YOUNG ADULT MEAN.
--- NOTE | 2022-02-07 14:23 | MM ---
Reason for Exam: Screening (asymptomatic). Last screening mammogram was performed 12 month(s) ago. Patient History: Menarche at age 14. First Full-Term at age 20. Left ovary removed at age 85. Right ovary removed at age 85. Hysterectomy at age 85. Postmenopausal. Hormonal Contraceptives for 6 months. Maternal cousin had breast cancer. Maternal aunt had breast cancer. Risk Values: Winifred 5 year model risk: 0.9%. NCI Lifetime model risk: 0.9%. Prior Study Comparison: 02/23/2018 Bilateral Screening Mammogram, [facility]. 03/14/2019 Bilateral Screening Mammogram, [facility] 01/24/2021 Bilateral Screening Mammogram, [facility]. Tissue Density: There are scattered fibroglandular densities. Findings: Analyzed By CAD. There is no suspicious group of microcalcifications or new suspicious mass in either breast. Benign-appearing bilateral breast calcifications. No significant change from prior examination. Overall Assessment: Benign, BI-RAD 2 Management: Screening Mammogram of both breasts in 1 year. A clinical breast exam by your physician is recommended on an annual basis and results should be correlated with mammographic findings. Electronically signed and approved by: Kris Chance D.O.
== END | disposition home or self-care (01) ==
LOC: RADMAMWWP 14:42
PROVIDERS: ATTEND Internal Medicine
DX: Z12.31 Encounter for screening mammogram for malignant neoplasm of breast (principal); Z78.0 Asymptomatic menopausal state; Z80.3 Family history of malignant neoplasm of breast
CPT/HCPCS: 77063; 77067; 77080

== ENCOUNTER → 2022-04-25 | Outpatient (CLI) | payer MEDICARE, BC ==
--- NOTE | 2022-04-25 13:51 | CT ---
EXAMINATION TYPE: CT chest wo con DATE OF EXAM: 04/25/2022 COMPARISON: 09/13/2021, 10/04/2021 HISTORY: SOB CT DLP: 470 mGycm. Automated Exposure Control for Dose Reduction was Utilized. TECHNIQUE: CT scan of the thorax is performed without IV contrast. FINDINGS: LUNGS: No pneumothorax or pleural effusion. No focal pneumonia. Stable slightly irregular pleural-based nodule measuring 4 mm at the anterior aspect of the right mid dle lobe. The more superior and lateral calcified granuloma is also stable measuring 3 mm. 7 mm nodul e is seen at the medial aspect of the right upper lobe. No other definite lung nodule identified. MEDIASTINUM: Lack of IV contrast is noted to limit evaluation for mediastinal and especially hilar ad enopathy. There are no definitive greater than 1 cm hilar or mediastinal lymph nodes. Atherosclerotic change aorta and coronary artery calcification. Annular calcifications also noted. OTHER: Hypertrophic and degenerative changes spine. Atherosclerotic change aorta. Postcholecystectomy clips.. IMPRESSION: 1. Stable multiple pulmonary nodules unchanged from prior exam. A follow-up exam could be obtained in 6. Months as clinically warranted to document stability over two-year period
== END | disposition home or self-care (01) ==
LOC: RADCTMAIN 13:01
PROVIDERS: ATTEND Internal Medicine
DX: R91.8 Other nonspecific abnormal finding of lung field (principal)
CPT/HCPCS: 71250

== ENCOUNTER → 2022-11-07 | Outpatient (CLI) | payer MEDICARE, BC ==
--- NOTE | 2022-11-10 06:10 | CT ---
EXAMINATION TYPE: CT chest wo con DATE OF EXAM: 11/07/2022 COMPARISON: Prior CT April 25, 2022 and older study August 24, 2021 HISTORY: lung nodule CT DLP: 273.2 mGycm. Automated Exposure Control for Dose Reduction was Utilized. TECHNIQUE: CT scan of the thorax is performed without IV contrast. FINDINGS: LUNGS: Stable 7 mm right upper lobe nodule axial image 14 from prior study. Stable 3 mm calcified rig ht basilar nodule or benign granuloma is 27. Mild linear scarring in the right lung base is redemonst rated. Elevated eventrated anterior aspect right hemidiaphragm again seen. Mild medial left basilar l inear scarring and/or atelectasis redemonstrated. No new or enlarging greater than 5 mm pulmonary nod ules There is no pleural effusion or pneumothorax seen. The tracheobronchial tree is patent. MEDIASTINUM: Lack of IV contrast is noted to limit evaluation for mediastinal and especially hilar ad enopathy. There are no definitive greater than 1 cm hilar or mediastinal lymph nodes. No cardiomega ly or pericardial effusion is seen. Coronary artery calcification is redemonstrated. Calcification le carlos enrique of the mitral valve is again seen. OTHER: Exaggerated thoracic kyphosis with multilevel spurring in the spine. IMPRESSION: Stable 7 mm right upper lobe pulmonary nodule. Advise CT follow-up in 1 year time to docu ment two-year stability. No new or enlarging greater than 5 mm pulmonary nodules.
== END | disposition home or self-care (01) ==
LOC: RADCTMAIN 12:35
PROVIDERS: ATTEND Internal Medicine
DX: R91.1 Solitary pulmonary nodule (principal)
CPT/HCPCS: 71250

== ENCOUNTER → 2023-03-27 | Outpatient (CLI) | payer MEDICARE, BC ==
--- NOTE | 2023-03-31 09:43 | MM ---
Reason for Exam: Screening (asymptomatic). Last mammogram was performed 1 year(s) and 2 month(s) ago. Patient History: Menarche at age 14. First Full-Term at age 20. Left ovary removed at age 85. Right ovary removed at age 85. Hysterectomy at age 85. Postmenopausal. Hormonal Contraceptives for 6 months. Maternal cousin had breast cancer. Maternal aunt had breast cancer. Prior Study Comparison: 03/14/2019 Bilateral Screening Mammogram, [facility]. 01/24/2021 Bilateral Screening Mammogram, [facility]. 02/06/2022 Bilateral MG 3D screening mammo w/cad, [facility]. Tissue Density: The breast tissue is heterogeneously dense. This may lower the sensitivity of mammography. Findings: Analyzed By CAD. There is no suspicious group of microcalcifications or new suspicious mass in either breast. Overall Assessment: Negative, BI-RAD 1 Management: Screening Mammogram of both breasts in 1 year. . Patient should continue monthly self-breast exams. A clinical breast exam by your physician is recommended on an annual basis. This exam should not preclude additional follow-up of suspicious palpable abnormalities. Note on Winifred scores and lifetime risk: 1. A Winifred score greater than 3% is considered moderate risk. If this is the case, consider specialist referral to assess eligibility for a risk reducing agent. 2. If overall lifetime risk for the development of breast cancer is 20% or higher, the patient may qualify for future screening with alternating mammogram and breast MRI. Electronically signed and approved by: Medhat Horner M.D. Radiologis
== END | disposition home or self-care (01) ==
LOC: RADMAMWWP 13:29
PROVIDERS: ATTEND Internal Medicine
DX: Z12.31 Encounter for screening mammogram for malignant neoplasm of breast (principal); Z78.0 Asymptomatic menopausal state; Z80.3 Family history of malignant neoplasm of breast
CPT/HCPCS: 77063; 77067

== ENCOUNTER → 2023-05-22 | Outpatient (CLI) | payer MEDICARE, BC ==
--- NOTE | 2023-05-22 19:59 | US ---
EXAMINATION TYPE: US kidneys/renal and bladder DATE OF EXAM: 05/22/2023 COMPARISON: NONE CLINICAL INDICATION: Female, 88 years old with history of N18.2 CHRONIC KIDNEY DISEASE, STAGE 2 (MILD ); Patient states she has urinary frequency EXAM MEASUREMENTS: Right Kidney: 9.0 x 4.5 x 4.9 cm Left Kidney: 10.4 x 4.5 x 5.2 cm Post Void Residual Volume: 15.8 mL Right Kidney: Two cystic appearing lesions seen, 1- mid lateral = 1.4 x 1.3 x 1.1 cm 2- lateral inf erior = 0.8 x 0.9 x 0.7 cm Left Kidney: mid echogenic area seen, column of River noted. Bladder: anechoic Bilateral Jets seen Normal Post Void Residual There is no evidence for hydronephrosis at this point in time. No nephrolithiasis is seen. No jose s are identified. The urinary bladder is anechoic. Bilateral ureteral jets are seen. IMPRESSION: 1. No evidence for obstructive uropathy. 2. Simple appearing right renal cyst.
== END | disposition home or self-care (01) ==
LOC: RADUSWWP 16:28
PROVIDERS: ATTEND Internal Medicine Nephrology
DX: N18.2 Chronic kidney disease, stage 2 (mild) (principal); N28.1 Cyst of kidney, acquired; R35.0 Frequency of micturition
CPT/HCPCS: 76770

== ENCOUNTER → 2023-11-20 | Outpatient (CLI) | payer MEDICARE, BC ==
--- NOTE | 2023-11-21 14:42 | CT ---
EXAMINATION TYPE: CT chest wo con DATE OF EXAM: 11/20/2023 COMPARISON: 11/07/2022r HISTORY: lung nodule f/u CT DLP: 359 mGycm, Automated exposure control for dose reduction was used. CONTRAST: None TECHNIQUE: Axial images were obtained at 5 mm thick sections. Reconstructed images are reviewed on [employer] computer in the coronal plane. FINDINGS: Portion of the thyroid visualized is normal. There is a 0.7 cm density within the medial right upper lung field. Series 4 image 12. This appears s table. There is a punctate calcification in the periphery of the anterolateral right lung field. Seri es 2 image 24. No enlarged mediastinal or hilar adenopathy is evident. The ascending aorta diameter at the level o f the main pulmonary artery is 3.2 cm. The main pulmonary artery diameter at the bifurcation is 3.6 cm. Correlate for pulmonary hypertension. Mild coronary artery calcifications present. Limited CT sections are obtained through the upper abdomen. There has been a prior cholecystectomy. IMPRESSION: 1. Stable right upper lobe nodule. Follow-up exam in 6 months can be performed to document stability over the course of 2 years. 2. No new or changing nodules.
== END | disposition home or self-care (01) ==
LOC: RADCTMAIN 13:18
PROVIDERS: ATTEND Internal Medicine
DX: R91.1 Solitary pulmonary nodule (principal)
CPT/HCPCS: 71250

== ENCOUNTER → 2024-11-11 | Outpatient (CLI) | payer MEDICARE, BC ==
--- NOTE | 2024-11-11 13:21 | CT ---
EXAMINATION TYPE: CT chest wo con DATE OF EXAM: 11/11/2024 1:03 PM COMPARISON: Multiple CTs of the chest with most recent on 11/20/2023 and dating back to 04/25/2022. CLINICAL INDICATION: Female, 89 years old with history of R91.1 LUNG NODULE; PHH, F/U LUNG NODULE. NE IOR ON PACS TECHNIQUE: Multiple axial images were obtained through the chest. Sagittal and coronal reformats were created for review. MIP was performed on a separate workstation. Contrast used: mL of (None if empty) Oral contrast used: (None if empty) CT DLP: 437 mGycm, Automated exposure control for dose reduction was used. FINDINGS: LUNGS/ PLEURA: Stable right upper lobe 7 mm pulmonary nodule. Scattered other pulmonary nodules inclu ding right middle lobe 3 mm series 3 image 29 stable back to 04/25/2022 and anterior middle lobe measu ring 5 mm series 3 image 32 is more pronounced compared to prior may not been present. No focal conso lidation, pneumothorax or pleural effusion. Mild centrilobular emphysema changes. AIRWAY: Patent and unremarkable. HEART: Size within normal limits. Mild coronary artery calcifications present. Mitral valve annular c custodial patient's. MEDIASTINUM: No gross evidence of adenopathy. VASCULATURE: No aortic aneurysm. MUSCULOSKELETAL: Severe disc degeneration changes are present throughout the thoracolumbar spine seco ndary to osteophyte formation and facet joint arthropathy. Severe degeneration changes of the shoulde rs of osteophyte formation and joint space narrowing present. SOFT TISSUES/LYMPH NODES: Unremarkable. LOWER NECK: No significant findings. UPPER ABDOMEN: Cholecystectomy clips present. IMPRESSION: 1. Right middle lobe 5 mm nodule appears new. Six-month follow-up recommended to ensure stability. Additional pulmonary nodules including right upper lobe 7 mm are stable. 2. Mild emphysema changes. [facility], , 11/11/2024 1:19 PM
== END | disposition home or self-care (01) ==
LOC: RADCTMAIN 12:36
PROVIDERS: ATTEND Internal Medicine
DX: R91.1 Solitary pulmonary nodule (principal); R91.8 Other nonspecific abnormal finding of lung field; J43.2 Centrilobular emphysema
CPT/HCPCS: 71250

== ENCOUNTER → 2024-12-02 | Outpatient (CLI) | payer MEDICARE, BC ==
--- NOTE | 2024-12-02 13:59 | US ---
EXAMINATION TYPE: US venous doppler duplex LE BI DATE OF EXAM: 12/02/2024 1:37 PM COMPARISON: NONE CLINICAL INDICATION: Female, 89 years old with history of PAIN IN BOTH LOWER EXTREMITIES [id number]; Pain bilateral legs, worse on the right, Pain TECHNIQUE: The lower extremity deep venous system is examined utilizing real time linear array sonog jaylan with graded compression, color doppler sonography, and spectral doppler. SIDE PERFORMED: Bilateral FINDINGS: VESSELS IMAGED: Common Femoral Vein Deep Femoral Vein Greater Saphenous Vein * Femoral Vein Popliteal Vein Small Saphenous Vein * Proximal Calf Veins (* superficial vessels) *Limitations due to patient's body habitus Right Leg: No evidence of DVT, Color Doppler imaging shows patency of the vessels. Spectral waveform s are within normal limits. Left Leg: No evidence of DVT, Color Doppler imaging shows patency of the vessels. Spectral waveforms are within normal limits. IMPRESSION: No ultrasound evidence for deep venous thrombosis. [facility], , 12/02/2024 1:57 PM
--- NOTE | 2024-12-02 15:26 | XR ---
EXAMINATION TYPE: XR foot complete 3 views RT DATE OF EXAM: 12/02/2024 12:50 PM COMPARISON: Tibia/fibula 12/06/2014 CLINICAL INDICATION: Female, 89 years old with history of M79.671 R foot pain; PHH, pain FINDINGS: Limited due to diffuse osteopenia and large body habitus. There is moderate degenerative change first MTP joint with joint space narrowing and marginal spurring. Mild bunion formation. Bipartite tibial sesamoid. Mild generalized soft tissue swelling. Mild degenerative change throughout the TMT joints. Huwba-wt-egcahuec sized plantar heel spur. Small os intermetatarseum on the lateral view. Allowing fo r the degree of osteopenia, no acute fracture, subluxation, dislocation is seen. IMPRESSION: 1. Prominent soft tissue swelling and osteopenia. 2. Moderate first MTP joint OA, scattered mild midfoot/TMT joint OA, and a [id number] sized pl edin heel spur. [facility], Workstation: [facility], 12/02/2024 3:24 PM
== END | disposition home or self-care (01) ==
LOC: RADUSWWP 12:28
PROVIDERS: ATTEND Internal Medicine
DX: M85.871 Other specified disorders of bone density and structure, right ankle and foot (principal); M19.071 Primary osteoarthritis, right ankle and foot
CPT/HCPCS: 93970